=== PATIENT | male | born 1985 | race African-American/Black ===

== ENCOUNTER 2023-09-02 03:52 | Emergency (ER) | payer OTHER ==
[2023-09-02 04:14] VITALS: RESP 18
[2023-09-02 04:31] LABS: Basophils % (A) 0 %; Eosinophils # (A) 0.3 k/uL (0-0.7); Eosinophils % (A) 5 %; HCT 38.5 % (39.0-53.0); HGB 13.2 gm/dL (13.0-17.5); Lymphocytes # (A) 2.5 k/uL (1.0-4.8); Lymphocytes % (A) 45 %; MCH 32.5 pg (25.0-35.0); MCHC 34.4 g/dL (31.0-37.0); MCV 94.5 fL (80.0-100.0); Mean Platelet Volume 8.1; Monocytes # (A) 0.3 k/uL (0-1.0); Monocytes % (A) 6 %; Neutrophils # (A) 2.3 k/uL (1.3-7.7); Neutrophils % (A) 41 %; Platelet Count 239 k/uL (150-450); RBC 4.08 m/uL (4.30-5.90); RDW 12.7 % (11.5-15.5); WBC 5.5 k/uL (3.8-10.6)
[2023-09-02 04:38] LABS: ALT 22 U/L (4-49); AST 33 U/L (17-59); African American GFR (CKD) >90 (>60 ml/min/1.73 sqM); Albumin 4.1 g/dL (3.5-5.0); Alkaline Phosphatase 70 U/L (38-126); Amylase 93 U/L (30-110); Anion Gap 12 mmol/L; Blood Urea Nitrogen 8 mg/dL (9-20); Calcium 8.8 mg/dL (8.4-10.2); Carbon Dioxide 24 mmol/L (22-30); Chloride 100 mmol/L (98-107); Glucose 110 mg/dL (74-99); Lipase 236 U/L (23-300); Non-African American GFR(CKD) >90 (>60 ml/min/1.73 sqM); Potassium 3.5 mmol/L (3.5-5.1); Sodium 136 mmol/L (137-145); Total Bilirubin 0.3 mg/dL (0.2-1.3); Total Protein 6.7 g/dL (6.3-8.2)
--- NOTE | 2023-09-02 05:37 | ED ---
Abdominal Pain HPI - General Chief Complaint: Abdominal Pain Stated Complaint: abd pain Time Seen by Provider: 09/02/23 04:14 Source: patient Mode of arrival: ambulatory Limitations: no limitations - History of Present Illness Initial Comments: 37-year-old male with a history of alcoholic pancreatitis reports he had not drank in quite some period time but is been drinking liquor heavily for about 2 days and had some burning epigastric abdominal pain nausea and a small episode of nonbloody nonbilious emesis. Patient was concerned he could be developing pancreatitis considered in the ER for evaluation. Patient took a cab to the ER due to intoxication - Related Data Allergies Allergy/AdvReac Type Severity Reaction Status Date / Time No Known Allergies Allergy Verified 09/02/23 04:04 Review of Systems ROS Statement: Those systems with pertinent positive or pertinent negative responses have been documented in the HPI. ROS Other: All systems not noted in ROS Statement are negative. Past Medical History Additional Past Medical History / Comment(s): pancrentitis History of Any Multi-Drug Resistant Organisms: None Reported Past Surgical History: No Surgical Hx Reported Past Psychological History: Anxiety, Depression Smoking Status: Current every day smoker, Heavy tobacco smoker Past Drug Use History: None Reported General Exam Limitations: no limitations General appearance: alert, other (Strong odor of alcohol) Eye exam: Present: normal appearance Respiratory exam: Absent: respiratory distress Cardiovascular Exam: Present: regular rate GI/Abdominal exam: Present: soft, tenderness, normal bowel sounds. Absent: guarding, rebound, rigid Rectal exam: Present: deferred Neurological exam: Present: alert Psychiatric exam: Present: normal affect, normal mood Skin exam: Present: warm, dry Course Vital Signs 09/02/23 09/02/23 04:01 06:23 Temperature 98.6 F 98.7 F Pulse Rate 100 72 Respiratory 18 18 Rate Blood Pressure 128/82 126/86 O2 Sat by Pulse 96 96 Oximetry Medical Decision Making - Medical Decision Making Patient evaluated in triage bay as there are no beds available in the ER Was pt. sent in by a medical professional or institution (, PA, PHYSICIAN PRACTICE CONSULTANT, urgent care, hospital, or [place] health care facility...) When possible be specific @ -No Did you speak to anyone other than the patient for history (EMS, parent, family, police, friend...)? What history was obtained from this source @ -No Did you review nursing and triage notes (agree or disagree)? Why? @ -I reviewed and agree with nursing and triage notes Were old charts reviewed (outside hosp., previous admission, EMS record, old EKG, old radiological studies, urgent care reports/EKG's, [place] health care facility records)? Report findings @ -No old charts were reviewed Differential Diagnosis (chest pain, altered mental status, abdominal pain women, abdominal pain men, vaginal bleeding, weakness, fever, dyspnea, syncope, headache, dizziness, GI bleed, back pain, seizure, CVA, palpatations, mental health)? @ -Differential Abdominal Pain Men: Appendicitis, cholecystitis, diverticulosis, ischemic bowel, pancreatitis, hepatitis, UTI, gastroenteritis, AAA, incarcerated hernia, bowel obstruction, constipation, inflammatory bowel, hepatitis, peptic ulcer disease, splenic infarction, perforated viscus, testicular torsion, this is not meant to be an all-inclusive list EKG interpreted by me (3pts min.). @ -As above X-rays interpreted by me (1pt min.). @ -None done CT interpreted by me (1pt min.). @ -None done U/S interpreted by me (1pt. min.). @ -None done What testing was considered but not performed or refused? (CT, X-rays, U/S, labs)? Why? @ -None What meds were considered but not given or refused? Why? @ -None Did you discuss the management of the patient with other professionals (professionals i.e. , PA, PHYSICIAN PRACTICE CONSULTANT, lab, RT, psych nurse, social services analyst, building construction contractor, teacher, chief diversity officer, case filler)? Give summary @ -No Was smoking cessation discussed for >3mins.? @ -No Was critical care preformed (if so, how long)? @ -No Were there social determinants of health that impacted care today? How? (Homelessness, low income, unemployed, alcoholism, drug addiction, t ransportation, low edu. Level, literacy, decrease access to med. care, residential, rehab)? @ -No Was there de-escalation of care discussed even if they declined (Discuss DNR or withdrawal of care, Hospice)? DNR status @ -No What co-morbidities impacted this encounter? (DM, HTN, Smoking, COPD, CAD, Cancer, CVA, ARF, Chemo, Hep., AIDS, mental health diagnosis, sleep apnea, morbid obesity)? @ -None Was patient admitted / discharged? Hospital course, mention meds given and route, prescriptions, significant lab abnormalities, going to OR and other pertinent info. @ -Discharge Patient workup initiated in triage, patient returned to the waiting room where he slept until he was called back in for exam, which revealed a benign abdomen, patient was advised of normal labs, advised to quit drinking alcohol. Return parameters discussed, patient discharged home in stable condition. Undiagnosed new problem with uncertain prognosis? @ -No Drug Therapy requiring intensive monitoring for toxicity (Heparin, Nitro, Ins ulin, Cardizem)? @ -No Were any procedures done? @ -No Diagnosis/symptom? @ Alcohol intoxication Acute, or Chronic, or Acute on Chronic? @ -Acute Uncomplicated (without systemic symptoms) or Complicated (systemic symptoms)? @ -Complicated Side effects of treatment? @ -No Exacerbation, Progression, or Severe Exacerbation? @ -No Poses a threat to life or bodily function? How? (Chest pain, USA, VT, pneumonia, PE, COPD, DKA, ARF, appy, cholecystitis, CVA, Diverticulitis, Homicidal, Suicidal, threat to staff... and all critical care pts) @ -No - Lab Data Result diagrams: 09/02/23 04:06 09/02/23 04:06 Lab Results 09/02/23 09/02/23 09/02/23 Range/Units 04:06 04:06 04:06 WBC 5.5 (3.8-10.6) k/uL RBC 4.08 L (4.30-5.90) m/uL Hgb 13.2 (13.0-17.5) gm/dL Hct 38.5 L (39.0-53.0) % MCV 94.5 (80.0-100.0) fL MCH 32.5 (25.0-35.0) pg MCHC 34.4 (31.0-37.0) g/dL RDW 12.7 (11.5-15.5) % Plt Count 239 (150-450) k/uL MPV 8.1 Neutrophils % 41 % Lymphocytes % 45 % Monocytes % 6 % Eosinophils % 5 % Basophils % 0 % Neutrophils # 2.3 (1.3-7.7) k/uL Lymphocytes # 2.5 (1.0-4.8) k/uL Monocytes # 0.3 (0-1.0) k/uL Eosinophils # 0.3 (0-0.7) k/uL Basophils # 0.0 (0-0.2) k/uL Sodium 136 L (137-145) mmol/L Potassium 3.5 (3.5-5.1) mmol/L Chloride 100 (98-107) mmol/L Carbon Dioxide 24 (22-30) mmol/L Anion Gap 12 mmol/L BUN 8 L (9-20) mg/dL Creatinine 0.69 (0.66-1.25) mg/dL Est GFR (CKD-EPI)AfAm >90 (>60 ml/min/1.73 sqM) Est GFR (CKD-EPI)NonAf >90 (>60 ml/min/1.73 sqM) Glucose 110 H (74-99) mg/dL Plasma Lactic Acid Dio 1.6 (0.7-2.0) mmol/L Calcium 8.8 (8.4-10.2) mg/dL Total Bilirubin 0.3 (0.2-1.3) mg/dL AST 33 (17-59) U/L ALT 22 (4-49) U/L Alkaline Phosphatase 70 (38-126) U/L Total Protein 6.7 (6.3-8.2) g/dL Albumin 4.1 (3.5-5.0) g/dL Amylase 93 (30-110) U/L Lipase 236 (23-300) U/L Disposition Clinical Impression: Abdominal pain, Alcohol intoxication Disposition: HOME SELF-CARE Condition: Stable Instructions (If sedation given, give patient instructions): Abdominal Pain (ED) Additional Instructions: As discussed, I recommend you stop drinking alcohol to avoid future episodes of pain and pancreatitis Today, stay hydrated and rest Return to the ER for any worsening symptoms or development of new or concerning symptoms Is patient prescribed a controlled substance at d/c from ED?: No Referrals: None,Stated [Primary Care Provider] - 1-2 days
[2023-09-02 06:59] VITALS: BP 126/86; PULSE 72; TEMP 98.7
== END 2023-09-02 06:29 | disposition home or self-care (01) ==
LOC: EC 03:52
DX: R10.9 Unspecified abdominal pain (principal); F10.129 Alcohol abuse with intoxication, unspecified; F17.200 Nicotine dependence, unspecified, uncomplicated; Z86.59 Personal history of other mental and behavioral disorders
CPT/HCPCS: 36415; 80053; 82150; 83605; 83690; 85025; 99284

== ENCOUNTER 2023-09-08 22:48 | Inpatient (IN) | payer MEDICAID, OTHER ==
--- NOTE | 2023-09-09 01:54 | ED ---
Psych HPI - General Chief Complaint: Psychiatric Symptoms Stated Complaint: Mental Health Time Seen by Provider: 09/09/23 01:45 Source: patient, police, RN notes reviewed, old records reviewed Mode of arrival: ambulatory - History of Present Illness Initial Comments: This a 37-year-old male to the emergency department for evaluation. Patient does admit to drinking some alcohol today. Patient for psychiatric evaluation patient's checking in for increased anxiety and depression, need for mental health support Off his psychiatric medications MD Complaint: suicidal ideation, feels depressed -: days(s) Associated Psychiatric Symptoms: depression, suicidal ideation History of same: Yes Quality: constant, intermittent Improves With: none Context: not taking psychiatric medications, significant life stressor Associated Symptoms: denies other symptoms Treatments Prior to Arrival: placed on mental health hold If Self Harm: admits thoughts of self harm - Related Data Home Medications Medication Instructions Recorded Confirmed No Known Home Medications 09/09/23 09/09/23 Allergies Allergy/AdvReac Type Severity Reaction Status Date / Time No Known Allergies Allergy Verified 09/09/23 10:58 Review of Systems ROS Statement: Those systems with pertinent positive or pertinent negative responses have been documented in the HPI. ROS Other: All systems not noted in ROS Statement are negative. Past Medical History Additional Past Medical History / Comment(s): pancrentitis History of Any Multi-Drug Resistant Organisms: None Reported Past Surgical History: No Surgical Hx Reported Past Psychological History: Anxiety, Depression Smoking Status: Current every day smoker, Heavy tobacco smoker Past Drug Use History: None Reported General Exam Limitations: no limitations General appearance: alert, in no apparent distress Head exam: Present: atraumatic, normocephalic, normal inspection Eye exam: Present: normal appearance, PERRL, EOMI. Absent: scleral icterus, conjunctival injection, periorbital swelling ENT exam: Present: normal exam, mucous membranes moist Neck exam: Present: normal inspection. Absent: tenderness, meningismus, lymphadenopathy Respiratory exam: Present: normal lung sounds bilaterally. Absent: respiratory distress, wheezes, rales, rhonchi, stridor Cardiovascular Exam: Present: regular rate, normal rhythm, normal heart sounds. Absent: systolic murmur, diastolic murmur, rubs, gallop, clicks GI/Abdominal exam: Present: soft, normal bowel sounds. Absent: distended, tenderness, guarding, rebound, rigid Extremities exam: Present: normal inspection, full ROM, normal capillary refill. Absent: tenderness, pedal edema, joint swelling, calf tenderness Back exam: Present: normal inspection Neurological exam: Present: alert, oriented X3, CN II-XII intact Psychiatric exam: Present: normal affect, normal mood Skin exam: Present: warm, dry, intact, normal color. Absent: rash Course Vital Signs 09/08/23 09/09/23 09/10/23 23:00 08:43 06:02 Temperature 98.6 F 98.3 F Pulse Rate 62 89 78 Pulse Rate [ Right Brachial] Respiratory 18 18 16 Rate Blood Pressure 149/97 142/68 149/97 Blood Pressure [Right Arm] O2 Sat by Pulse 98 99 96 Oximetry 09/10/23 09/10/23 12:02 13:15 Temperature 97.2 F L Pulse Rate 78 Pulse Rate [ 84 Right Brachial] Respiratory 18 16 Rate Blood Pressure 123/84 Blood Pressure 134/93 [Right Arm] O2 Sat by Pulse 96 100 Oximetry - Reevaluation(s) Reevaluation #1: 09/09/23 06:09 Medical records reviewed Reevaluation #2: 09/09/23 06:09 Medical clear for psychiatric evaluation Medical Decision Making - Medical Decision Making 37 male will be admitted for psychiatric evaluation and treatment - Lab Data Result diagrams: 09/09/23 17:57 09/09/23 17:57 Lab Results 09/09/23 09/09/23 09/09/23 Range/Units 03:38 17:57 17:57 WBC 4.5 (3.8-10.6) k/uL RBC 4.11 L (4.30-5.90) m/uL Hgb 13.6 (13.0-17.5) gm/dL Hct 39.0 (39.0-53.0) % MCV 94.9 (80.0-100.0) fL MCH 33.0 (25.0-35.0) pg MCHC 34.8 (31.0-37.0) g/dL RDW 13.1 (11.5-15.5) % Plt Count 228 (150-450) k/uL MPV 8.6 Neutrophils % 57 % Lymphocytes % 32 % Monocytes % 7 % Eosinophils % 2 % Basophils % 0 % Neutrophils # 2.6 (1.3-7.7) k/uL Lymphocytes # 1.5 (1.0-4.8) k/uL Monocytes # 0.3 (0-1.0) k/uL Eosinophils # 0.1 (0-0.7) k/uL Basophils # 0.0 (0-0.2) k/uL Sodium 136 L (137-145) mmol/L Potassium 3.8 (3.5-5.1) mmol/L Chloride 102 (98-107) mmol/L Carbon Dioxide 27 (22-30) mmol/L Anion Gap 7 mmol/L BUN 9 (9-20) mg/dL Creatinine 0.64 L (0.66-1.25) mg/dL Est GFR (CKD-EPI)AfAm >90 (>60 ml/min/1.73 sqM) Est GFR (CKD-EPI)NonAf >90 (>60 ml/min/1.73 sqM) Glucose 91 (74-99) mg/dL Calcium 8.8 (8.4-10.2) mg/dL Total Bilirubin 0.8 (0.2-1.3) mg/dL AST 32 (17-59) U/L ALT 33 (4-49) U/L Alkaline Phosphatase 60 (38-126) U/L Total Protein 6.1 L (6.3-8.2) g/dL Albumin 3.7 (3.5-5.0) g/dL Urine Opiates Screen Not Detected (NotDetected) Ur Oxycodone Screen Not Detected (NotDetected) Urine Methadone Screen Not Detected (NotDetected) Ur Propoxyphene Screen Not Detected (NotDetected) Ur Barbiturates Screen Not Detected (NotDetected) U Tricyclic Antidepress Not Detected (NotDetected) Ur Phencyclidine Scrn Not Detected (NotDetected) Ur Amphetamines Screen Not Detected (NotDetected) U Methamphetamines Scrn Not Detected (NotDetected) U Benzodiazepines Scrn Not Detected (NotDetected) Urine Cocaine Screen Not Detected (NotDetected) U Marijuana (THC) Screen Not Detected (NotDetected) Serum Alcohol <10 mg/dL SARS-CoV-2 (PCR) (Not Detectd) 09/09/23 Range/Units 18:00 WBC (3.8-10.6) k/uL RBC (4.30-5.90) m/uL Hgb (13.0-17.5) gm/dL Hct (39.0-53.0) % MCV (80.0-100.0) fL MCH (25.0-35.0) pg MCHC (31.0-37.0) g/dL RDW (11.5-15.5) % Plt Count (150-450) k/uL MPV Neutrophils % % Lymphocytes % % Monocytes % % Eosinophils % % Basophils % % Neutrophils # (1.3-7.7) k/uL Lymphocytes # (1.0-4.8) k/uL Monocytes # (0-1.0) k/uL Eosinophils # (0-0.7) k/uL Basophils # (0-0.2) k/uL Sodium (137-145) mmol/L Potassium (3.5-5.1) mmol/L Chloride (98-107) mmol/L Carbon Dioxide (22-30) mmol/L Anion Gap mmol/L BUN (9-20) mg/dL Creatinine (0.66-1.25) mg/dL Est GFR (CKD-EPI)AfAm (>60 ml/min/1.73 sqM) Est GFR (CKD-EPI)NonAf (>60 ml/min/1.73 sqM) Glucose (74-99) mg/dL Calcium (8.4-10.2) mg/dL Total Bilirubin (0.2-1.3) mg/dL AST (17-59) U/L ALT (4-49) U/L Alkaline Phosphatase (38-126) U/L Total Protein (6.3-8.2) g/dL Albumin (3.5-5.0) g/dL Urine Opiates Screen (NotDetected) Ur Oxycodone Screen (NotDetected) Urine Methadone Screen (NotDetected) Ur Propoxyphene Screen (NotDetected) Ur Barbiturates Screen (NotDetected) U Tricyclic Antidepress (NotDetected) Ur Phencyclidine Scrn (NotDetected) Ur Amphetamines Screen (NotDetected) U Methamphetamines Scrn (NotDetected) U Benzodiazepines Scrn (NotDetected) Urine Cocaine Screen (NotDetected) U Marijuana (THC) Screen (NotDetected) Serum Alcohol mg/dL SARS-CoV-2 (PCR) Not Detected (Not Detectd) Disposition Clinical Impression: Acute anxiety, Alcohol intoxication, Depression, Suicidal ideation Disposition: TRANSFER TO PSYCH HOSP/UNIT Condition: Fair Is patient prescribed a controlled substance at d/c from ED?: No
[2023-09-09 05:04] LABS: Amphetamine Screen,Urine Not Detected (NotDetected); Barbiturate Screen,Urine Not Detected (NotDetected); Benzodiazepines Screen,Urine Not Detected (NotDetected); Cocaine Screen,Urine Not Detected (NotDetected); Methadone Screen, Urine Not Detected (NotDetected); Opiate Screen,Urine Not Detected (NotDetected); Oxycodone Screen, Urine Not Detected (NotDetected); Phencyclidine Screen,Urine Not Detected (NotDetected); Tricyclic Antidepressant,Urine Not Detected (NotDetected); Urn Cannabinoid Scrn Not Detected (NotDetected)
[2023-09-09 18:17] LABS: Basophils % (A) 0 %; Eosinophils # (A) 0.1 k/uL (0-0.7); Eosinophils % (A) 2 %; HGB 13.6 gm/dL (13.0-17.5); Lymphocytes # (A) 1.5 k/uL (1.0-4.8); Lymphocytes % (A) 32 %; MCHC 34.8 g/dL (31.0-37.0); MCV 94.9 fL (80.0-100.0); Mean Platelet Volume 8.6; Monocytes # (A) 0.3 k/uL (0-1.0); Monocytes % (A) 7 %; Neutrophils # (A) 2.6 k/uL (1.3-7.7); Neutrophils % (A) 57 %; Platelet Count 228 k/uL (150-450); RBC 4.11 m/uL (4.30-5.90); RDW 13.1 % (11.5-15.5); WBC 4.5 k/uL (3.8-10.6)
[2023-09-09 18:39] LABS: ALT 33 U/L (4-49); AST 32 U/L (17-59); African American GFR (CKD) >90 (>60 ml/min/1.73 sqM); Albumin 3.7 g/dL (3.5-5.0); Alcohol <10 mg/dL; Alkaline Phosphatase 60 U/L (38-126); Blood Urea Nitrogen 9 mg/dL (9-20); Calcium 8.8 mg/dL (8.4-10.2); Carbon Dioxide 27 mmol/L (22-30); Glucose 91 mg/dL (74-99); Non-African American GFR(CKD) >90 (>60 ml/min/1.73 sqM); Potassium 3.8 mmol/L (3.5-5.1); Sodium 136 mmol/L (137-145); Total Bilirubin 0.8 mg/dL (0.2-1.3); Total Protein 6.1 g/dL (6.3-8.2)
[2023-09-09 20:02] LABS: Anion Gap 7 mmol/L; Chloride 102 mmol/L (98-107)
[2023-09-09] MEDS ORDERED: LORazepam 1 MG TAB PO STA (21:25)
[2023-09-10] MEDS ORDERED: ALPRAZolam 1 MG TAB PO STA (12:46)
[2023-09-10] MEDS ORDERED: haloperidoL 5 MG TAB PO PRN (13:21)
[2023-09-10] MEDS ORDERED: OLANZapine 10 MG VIAL IM PRN (13:21)
[2023-09-10] MEDS ORDERED: MAGNESIUM HYDROXIDE 2,400 MG/30 ML CUP PO PRN (13:21)
[2023-09-10] MEDS ORDERED: MAG HYDROX/AL HYDROX/SIMETH 30 ML CUP PO PRN (13:21)
[2023-09-10] MEDS ORDERED: LORazepam 2 MG/ML INJ IM PRN (13:21)
[2023-09-10] MEDS ORDERED: ACETAMINOPHEN TAB 325 MG TAB PO PRN (13:21)
[2023-09-10] MEDS: NICOTINE 21MG/24HR PATCH TRANSDERM SCH (14:54)
[2023-09-10] MEDS: LORazepam 1 MG TAB PO PRN ×2 (14:54→21:05)
--- NOTE | 2023-09-10 21:54 | P.CONS ---
History of Present Illness - Reason for Consult Consult date: 09/10/23 - History of Present Illness The patient is a 37-year-old male with a PMH of mild intermittent asthma who had presented to the emergency room with complaints of depression and suicidal ideation. The patient was admitted to the mental health unit where he was seen and evaluated. He reports having splurged recently and no longer having a good financial footing. He also reports a significant intermittent alcohol abuse ( drinking as much as a fifth on certain days) and smoking a pack of cigarettes daily for the past several years. Denied any illicit substance use. Denied any physical complaints at the time of interview. Denied experiencing chest discomfort, shortness of breath, fever, chills, cough, nausea, vomiting, abdominal pain, diarrhea. Review of systems: Pertinent positives and negatives as discussed in HPI, a complete review of systems was performed and all other systems are negative. Physical examination: General: non toxic, no distress, appears at stated age, obese Derm: no unusual rashes/lesions, no unusual ecchymoses, warm, dry Head: atraumatic, normocephalic, symmetric Eyes: EOMI, no lid lag, anicteric sclera ENT: Nose and ears atraumatic, no thrush, no pharyngeal erythema Neck: trachea midline, supple Mouth: no lip lesion, mucus membranes moist Cardiovascular: S1S2 reg, no murmur, no edema Lungs: CTA bilateral, no rhonchi, no rales , no accessory muscle use Abdominal: soft, nontender to palpation, no guarding Ext: no gross muscle atrophy, no contractures, Neuro: No gross focal neuro deficits noted Psych: Alert, oriented, appropriate affect Assessment: Alcohol and tobacco abuse Depression and suicidal ideation Imaging: None performed Data Review: Reviewed with urine toxicology unremarkable coronavirus PCR negative, sodium 136, hemoglobin 13.6. Plan: Strongly advised on importance of cessation Monitor for signs of withdrawal Defer management of depression and suicidal ideation to the primary psychiatry service Thank you for allowing us to participate in the care of this patient. We will follow peripherally. Do not hesitate to contact us with questions. Someone can be reached from the [facility] hospitalist group at all hours of the day at [phone]. Past Medical History Past Medical History: Asthma Additional Past Medical History / Comment(s): pancrentitis History of Any Multi-Drug Resistant Organisms: None Reported Past Surgical History: No Surgical Hx Reported Past Psychological History: Anxiety, Depression Smoking Status: Current every day smoker Past Drug Use History: None Reported Medications and Allergies Home Medications Medication Instructions Recorded Confirmed Type No Known Home Medications 09/09/23 09/09/23 History Allergies Allergy/AdvReac Type Severity Reaction Status Date / Time No Known Allergies Allergy Verified 09/09/23 10:58 Physical Exam Vitals: Vital Signs Temp Pulse Pulse Resp BP BP Pulse Ox 09/10/23 15:03 97.2 F L 84 16 134/93 100 09/10/23 13:15 97.2 F L 84 16 134/93 100 09/10/23 12:02 78 18 123/84 96 09/10/23 06:02 98.3 F 78 16 149/97 96 Intake and Output 09/10/23 09/10/23 09/10/23 06:59 14:59 22:59 Other: Weight 119.465 kg Results CBC & Chem 7: 09/09/23 17:57 09/09/23 17:57
[2023-09-11] MEDS: NICOTINE 21MG/24HR PATCH TRANSDERM SCH (08:15)
[2023-09-11] MEDS: METOPROLOL SUCCINATE (ER) 50 MG TAB.ER.24H PO SCH (08:16)
[2023-09-11] MEDS: LORazepam 1 MG TAB PO PRN ×3 (09:57→21:14)
--- NOTE | 2023-09-11 12:13 | P.HP ---
Psychiatric H&P - . H&P Date: 09/11/23 History & Physical: Allergies Allergy/AdvReac Type Severity Reaction Status Date / Time No Known Allergies Allergy Verified 09/09/23 10:58 Vital Signs Temp 97.2 F L 09/10/23 15:03 Pulse 109 H 09/11/23 08:17 Resp 16 09/11/23 08:17 BP 133/97 09/11/23 08:17 Pulse Ox 100 09/10/23 15:03 FiO2 Intake & Output 09/10/23 09/11/23 09/11/23 18:59 06:59 18:59 Weight 119.465 kg Laboratory Last Values WBC 4.5 k/uL (3.8-10.6) 09/09/23 17:57 RBC 4.11 m/uL (4.30-5.90) L 09/09/23 17:57 Hgb 13.6 gm/dL (13.0-17.5) 09/09/23 17:57 Hct 39.0 % (39.0-53.0) 09/09/23 17:57 MCV 94.9 fL (80.0-100.0) 09/09/23 17:57 MCH 33.0 pg (25.0-35.0) 09/09/23 17:57 MCHC 34.8 g/dL (31.0-37.0) 09/09/23 17:57 RDW 13.1 % (11.5-15.5) 09/09/23 17:57 Plt Count 228 k/uL (150-450) 09/09/23 17:57 MPV 8.6 09/09/23 17:57 Neutrophils % 57 % 09/09/23 17:57 Lymphocytes % 32 % 09/09/23 17:57 Monocytes % 7 % 09/09/23 17:57 Eosinophils % 2 % 09/09/23 17:57 Basophils % 0 % 09/09/23 17:57 Neutrophils # 2.6 k/uL (1.3-7.7) 09/09/23 17:57 Lymphocytes # 1.5 k/uL (1.0-4.8) 09/09/23 17:57 Monocytes # 0.3 k/uL (0-1.0) 09/09/23 17:57 Eosinophils # 0.1 k/uL (0-0.7) 09/09/23 17:57 Basophils # 0.0 k/uL (0-0.2) 09/09/23 17:57 Sodium 136 mmol/L (137-145) L 09/09/23 17:57 Potassium 3.8 mmol/L (3.5-5.1) 09/09/23 17:57 Chloride 102 mmol/L (98-107) 09/09/23 17:57 Carbon Dioxide 27 mmol/L (22-30) 09/09/23 17:57 Anion Gap 7 mmol/L 09/09/23 17:57 BUN 9 mg/dL (9-20) 09/09/23 17:57 Creatinine 0.64 mg/dL (0.66-1.25) L 09/09/23 17:57 Est GFR (CKD-EPI)AfAm >90 (>60 ml/min/1.73 sqM) 09/09/23 17:57 Est GFR (CKD-EPI)NonAf >90 (>60 ml/min/1.73 sqM) 09/09/23 17:57 Glucose 91 mg/dL (74-99) 09/09/23 17:57 Calcium 8.8 mg/dL (8.4-10.2) 09/09/23 17:57 Total Bilirubin 0.8 mg/dL (0.2-1.3) 09/09/23 17:57 AST 32 U/L (17-59) 09/09/23 17:57 ALT 33 U/L (4-49) 09/09/23 17:57 Alkaline Phosphatase 60 U/L (38-126) 09/09/23 17:57 Total Protein 6.1 g/dL (6.3-8.2) L 09/09/23 17:57 Albumin 3.7 g/dL (3.5-5.0) 09/09/23 17:57 TSH 1.630 mIU/L (0.465-4.680) 09/09/23 17:57 Urine Opiates Screen Not Detected (NotDetected) 09/09/23 03:38 Ur Oxycodone Screen Not Detected (NotDetected) 09/09/23 03:38 Urine Methadone Screen Not Detected (NotDetected) 09/09/23 03:38 Ur Propoxyphene Screen Not Detected (NotDetected) 09/09/23 03:38 Ur Barbiturates Screen Not Detected (NotDetected) 09/09/23 03:38 U Tricyclic Antidepress Not Detected (NotDetected) 09/09/23 03:38 Ur Phencyclidine Scrn Not Detected (NotDetected) 09/09/23 03:38 Ur Amphetamines Screen Not Detected (NotDetected) 09/09/23 03:38 U Methamphetamines Scrn Not Detected (NotDetected) 09/09/23 03:38 U Benzodiazepines Scrn Not Detected (NotDetected) 09/09/23 03:38 Urine Cocaine Screen Not Detected (NotDetected) 09/09/23 03:38 U Marijuana (THC) Screen Not Detected (NotDetected) 09/09/23 03:38 Serum Alcohol <10 mg/dL 09/09/23 17:57 SARS-CoV-2 (PCR) Not Detected (Not Detectd) 09/09/23 18:00 09/11/23 08:56 IDENTIFYING DATA: Patient is an 37 y/o male, lives in a house by himself. Patient is single with no children. Patient works at a factory. HPI: Patient presented to the hospital on 09/10. As per EPS note "My mental health has been shot. Suicidal." pt reports that he has been struggling with depression for some time, but that it has been worsening significantly over the past week or so. pt states that he has a lot of stressors in his life and that the thoughts have become much more intrusive and have been staying longer. pt continues to report SI with plan to cut himself." Patient states he came to the hospital Friday night, said he spent too much money, and had a 'mental breakdown'. His anxiety hit hard, and he felt depressed, and was feeling really down on himself, endorsing severe depression. Denies any recent stressors. Said everything was "on track". Recently spent a sum on money on a vacation, and he feels that's what started this feeling. Patient states he's generally a good saver, and just 'don't know what happened". States he's more depressed than anything, he is open to starting new medications as he has been non compliant with his home meds. States his sleep is good, and his appetite is decent. Denies anxiety at this time.Patient appears to be a little hesitant and guarded during todays interview. Patient denies any suicidal or homicidal ideations intent or plan. At this time patient denies any auditory or visual hallucinations. Patient denies any flight of ideas racing thoughts and increased in goal directed behavior. Patient admits to smoking cigarettes. Denies other drugs. Drinks alcohol occasionally. PAST PSYCHIATRIC HISTORY: Patient states that he was at [facility] for about a month, and completed the program. Patient works with [employer] for peer support. Patient states he was on lexapro and risperdal, patient has been off these medications. Patient was at [facility] about 6 months ago. Patient denies any psychiatric outpatient follow-up. Patient denies any history of suicide attempts in the past. PMH: as per ED note ALLERGIES: as per EMR CHEMICAL DEPENDENCY HISTORY: as per HPI FAMILY PSYCHIATRIC/SUBSTANCE USE HISTORY: dementia SOCIAL HISTORY: Patient was born in [place], [place], moved to [place] at the age of 2. 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 Lives alone in a house, no children, works at a factory. MENTAL STATUS EXAM: General Appearance: Patient appears to be stated age is alert, directable, and attempts to cooperate. Patient appears to have good hygiene and grooming. Tall, athletic stature, bald, shaven head. dressed in street clothes. Behavior: Patient is seated without any agitated behavior. Poor eye contact. Melancholy Speech: Patient's speech is fluent and nonpressured. Guarded Hesitant Mood/Affect: Patient reports their mood is depressed, affect is congruent and constricted. Suicidality/Homicidality: Patient denies having any homicidal ideation intent or plan. Denies any suicidal ideations intent or plan Perceptions: Patient denies any visual hallucinations and denies any auditory hilario llucinations Though content/process: There is no evidence of any delusional thought content and thought process is linear and goal-directed. concrete. Memory and concentration: AOX3, grossly intact for the purposes of this session. Can spell "WORLD" backwards Judgment and insight: poor STRENGTHS/WEAKNESSES: strength is that patient is resilient. Weakness is that patient has poor judgment and is impulsive INTELLECT: average IMPRESSIONS: Major depressive disorder without psychotic features Alcohol use disorder Nicotine dependence PLAN: -Patient is admitted under voluntary status to MHU for stabilization of psychiatric symptoms and safety. Patient has signed adult voluntary form and medication consent and is placed in patient's chart. -Medications : Will start patient on Zoloft 50mg qhs for mood/anxiety, trazadone 50mg qhs, prn for sleep/mood. patient is declining anti craving meds for etoh -Ativan and Haldol PRN for agitation/aggression -Started thiamine, MVM for etoh use -CIWA protocol with Ativan PRN for ETOH withdrawal q6 hours -Patient was counselled on substance abuse and desired to cut back on use -Patient was informed of the risks, benefits and side effects of the medication and patient verbally consented to taking the medications. Patient signed med consent form and was placed in chart. -Internal Medicine consult to perform medical evaluation and physical. -NRT - nicotine patch -SW on board for discharge planning. Encourage patient to participate in groups to work on coping skills. he is refusing rehab at this time.
[2023-09-11 16:42] LABS: Chol/HDL Ratio 1.77 Ratio; LDL Cholesterol,Calculated 26.6 mg/dL (0.0-131.0)
[2023-09-11] MEDS ORDERED: SERTRALINE 50 MG TAB PO SCH (21:00)
[2023-09-11] MEDS ORDERED: traZODone HCL 50 MG TAB PO SCH (21:00)
[2023-09-12 06:50] VITALS: RESP 14; TEMP 97.4
[2023-09-12] MEDS: METOPROLOL SUCCINATE (ER) 50 MG TAB.ER.24H PO SCH (08:28)
[2023-09-12] MEDS: NICOTINE 21MG/24HR PATCH TRANSDERM SCH (08:28)
[2023-09-12] MEDS: LORazepam 1 MG TAB PO PRN (08:30)
[2023-09-12 08:56] VITALS: BP 123/87; PULSE 89
[2023-09-12] MEDS ORDERED: SERTRALINE 50 MG TAB PO SCH (09:45)
--- NOTE | 2023-09-12 10:28 | P.DS ---
Providers Date of admission: 09/10/23 13:18 Expected date of discharge: 09/12/23 Attending physician: Cheng De La Rosa MD Consults: 09/10/23 13:21 Consult Physician Routine Consulting Provider: Rich Rivera Consult Reason/Comments: H and P Do you want consulting provider notified?: Yes Primary care physician: Stated None - Discharge Diagnosis(es) (1) Depressive disorder Current Visit: Yes Status: Acute Priority: High (2) Alcohol use disorder Current Visit: Yes Status: Acute Priority: Medium (3) Nicotine dependence Current Visit: Yes Status: Acute Priority: Low Hospital Course: Admission HPI: Admission note was completed by documentation writer "Patient presented to the hospital on 09/10. As per EPS note "My mental health has been shot. Suicidal." pt reports that he has been struggling with depression for some time, but that it has been worsening significantly over the past week or so. pt states that he has a lot of stressors in his life and that the thoughts have become much more intrusive and have been staying longer. pt continues to report SI with plan to cut himself." Patient states he came to the hospital Friday night, said he spent too much money, and had a 'mental breakdown'. His anxiety hit hard, and he felt depressed, and was feeling really down on himself, endorsing severe depression. Denies any recent stressors. Said everything was "on track". Recently spent a sum on money on a vacation, and he feels that's what started this feeling. Patient states he's generally a good saver, and just 'don't know what happened". States he's more depressed than anything, he is open to starting new medications as he has been non compliant with his home meds. States his sleep is good, and his appetite is decent. Denies anxiety at this time.Patient appears to be a little hesitant and guarded during todays interview. Patient denies any suicidal or homicidal ideations intent or plan. At this time patient denies any auditory or visual hallucinations. Patient denies any flight of ideas racing thoughts and increased in goal directed behavior. Patient admits to smoking cigarettes. Denies other drugs. Drinks alcohol occasionally. ]" Hospital course: Upon admission to the unit patient was directable and agreeable to commence treatment and signed adult voluntary form . Patient got along well with other patients on the unit and followed unit protocol. Patient was compliant with the medications and denied any side effects throughout hospital course. Patient was started on Zoloft 50 mg daily for mood/anxiety, trazodone 25 mg daily at bedtime for insomnia/mood. Patient was offered anti-craving medications for alcohol however declined it. Patient spoke of his stressors and engaged in therapy both group and individual. Patient was also seen by medical team for history and physical exam. Throughout the course of the hospitalization patient gradually improved with regards to mood, anxiety, sleep and became more future oriented with improved insight and judgment. On the day of discharge patient denied any suicidal or homicidal ideations intent or plan denied any auditory or visual hallucinations. Patient endorsed wanting to live for his sobriety and his future. He also mentioned that he has a current job lined up will be starting o jose the weekend. The patient denied any access to guns or weapons. Patient denied any paranoia and did not endorse any delusions. Patient does have a significant history of substance abuse and was counseled on abstaining from all substances including alcohol and marijuana. Patient was offered however declined inpatient substance-abuse rehab. Patient elected to do outpatient substance use treatment program through [facility]. Patient was also counseled on the medications and need for regular compliance and was encouraged to follow-up with their outpatient appointment for mental health and also for primary care. Mental status exam: General Appearance: Patient appears to be well built, bald, stated age is alert, pleasant, and cooperative. Patient is in no acute distress and has improved hygiene and grooming Behavior: Patient is calmly seated without any agitated behavior. Speech: Patient's speech is fluent and nonpressured. Mood/Affect: Patient reports their mood is "better", affect is congruent and euthymic. Suicidality/Homicidality: Patient denies having any suicidal or homicidal ideation intent or plan. Perceptions: Patient denies any auditory or visual hallucinations. Though content/process: There is no evidence of any delusional thought content and thought process is linear and goal-directed. more future oriented Memory and concentration: AOX3, grossly intact for the purposes of this session. Can spell "WORLD" backwards correctly. Judgment and insight: improved with guarded prognosis Impression: Depressive disorder unspecified, likely adjustment disorder with depressed mood Alcohol use disorder Nicotine dependence Plan: -Continue with discharge today as patient has improved and stabilized psychiatrically and is not currently an imminent threat to himself and/or others. -Continue medications: Zoloft 50 mg daily for mood/anxiety, trazodone 25 mg daily at bedtime for insomnia/mood. -Patient was counseled on the need for medication compliance and appropriate follow-up at mental health and also primary care for medical issues. Patient verbalized understanding and agreed. -Social work to help Shelley patient's discharge today back home. Social work also to arrange for patients follow up appointments for psychiatric care along with follow up with primary care provider. -Patient counseled on abstaining from recreational drugs and marijuana and alcohol. Was informed/educated on the adverse effects on their physical and mental health. Patient verbally agreed and understood. Patient was offered substance abuse treatment however declined at this time. -Patient was instructed to return to the hospital or seek immediate medical care if their psychiatric or medical symptoms do worsen or reoccur. Allergies Allergy/AdvReac Type Severity Reaction Status Date / Time No Known Allergies Allergy Verified 09/09/23 10:58 Laboratory Results WBC 4.5 k/uL (3.8-10.6) 09/09/23 17:57 RBC 4.11 m/uL (4.30-5.90) L 09/09/23 17:57 Hgb 13.6 gm/dL (13.0-17.5) 09/09/23 17:57 Hct 39.0 % (39.0-53.0) 09/09/23 17:57 MCV 94.9 fL (80.0-100.0) 09/09/23 17:57 MCH 33.0 pg (25.0-35.0) 09/09/23 17:57 MCHC 34.8 g/dL (31.0-37.0) 09/09/23 17:57 RDW 13.1 % (11.5-15.5) 09/09/23 17:57 Plt Count 228 k/uL (150-450) 09/09/23 17:57 MPV 8.6 09/09/23 17:57 Neutrophils % 57 % 09/09/23 17:57 Lymphocytes % 32 % 09/09/23 17:57 Monocytes % 7 % 09/09/23 17:57 Eosinophils % 2 % 09/09/23 17:57 Basophils % 0 % 09/09/23 17:57 Neutrophils # 2.6 k/uL (1.3-7.7) 09/09/23 17:57 Lymphocytes # 1.5 k/uL (1.0-4.8) 09/09/23 17:57 Monocytes # 0.3 k/uL (0-1.0) 09/09/23 17:57 Eosinophils # 0.1 k/uL (0-0.7) 09/09/23 17:57 Basophils # 0.0 k/uL (0-0.2) 09/09/23 17:57 Sodium 136 mmol/L (137-145) L 09/09/23 17:57 Potassium 3.8 mmol/L (3.5-5.1) 09/09/23 17:57 Chloride 102 mmol/L (98-107) 09/09/23 17:57 Carbon Dioxide 27 mmol/L (22-30) 09/09/23 17:57 Anion Gap 7 mmol/L 09/09/23 17:57 BUN 9 mg/dL (9-20) 09/09/23 17:57 Creatinine 0.64 mg/dL (0.66-1.25) L 09/09/23 17:57 Est GFR (CKD-EPI)AfAm >90 (>60 ml/min/1.73 sqM) 09/09/23 17:57 Est GFR (CKD-EPI)NonAf >90 (>60 ml/min/1.73 sqM) 09/09/23 17:57 Glucose 91 mg/dL (74-99) 09/09/23 17:[address] Glu mg/dL 111 mg/dL 09/09/23 17:57 Hemoglobin A1c 5.5 % (<=6.0) 09/09/23 17:57 Calcium 8.8 mg/dL (8.4-10.2) 09/09/23 17:57 Total Bilirubin 0.8 mg/dL (0.2-1.3) 09/09/23 17:57 AST 32 U/L (17-59) 09/09/23 17:57 ALT 33 U/L (4-49) 09/09/23 17:57 Alkaline Phosphatase 60 U/L (38-126) 09/09/23 17:57 Total Protein 6.1 g/dL (6.3-8.2) L 09/09/23 17:57 Albumin 3.7 g/dL (3.5-5.0) 09/09/23 17:57 Triglycerides 115.00 mg/dL (0.00-149.00) 09/09/23 17:57 Cholesterol 114.00 mg/dL (0.00-200.00) 09/09/23 17:57 LDL Cholesterol, Calc 26.6 mg/dL (0.0-131.0) 09/09/23 17:57 VLDL Cholesterol, Calc 23.00 mg/dL (5.00-40.00) 09/09/23 17:57 HDL Cholesterol 64.40 mg/dL (40.00-60.00) H 09/09/23 17:57 Cholesterol/HDL Ratio 1.77 Ratio 09/09/23 17:57 TSH 1.630 mIU/L (0.465-4.680) 09/09/23 17:57 Urine Opiates Screen Not Detected (NotDetected) 09/09/23 03:38 Ur Oxycodone Screen Not Detected (NotDetected) 09/09/23 03:38 Urine Methadone Screen Not Detected (NotDetected) 09/09/23 03:38 Ur Propoxyphene Screen Not Detected (NotDetected) 09/09/23 03:38 Ur Barbiturates Screen Not Detected (NotDetected) 09/09/23 03:38 U Tricyclic Antidepress Not Detected (NotDetected) 09/09/23 03:38 Ur Phencyclidine Scrn Not Detected (NotDetected) 09/09/23 03:38 Ur Amphetamines Screen Not Detected (NotDetected) 09/09/23 03:38 U Methamphetamines Scrn Not Detected (NotDetected) 09/09/23 03:38 U Benzodiazepines Scrn Not Detected (NotDetected) 09/09/23 03:38 Urine Cocaine Screen Not Detected (NotDetected) 09/09/23 03:38 U Marijuana (THC) Screen Not Detected (NotDetected) 09/09/23 03:38 Serum Alcohol <10 mg/dL 09/09/23 17:57 SARS-CoV-2 (PCR) Not Detected (Not Detectd) 09/09/23 18:00 Vital Signs Temp 97.4 F L 09/12/23 06:43 Pulse 89 09/12/23 08:33 Resp 14 09/12/23 06:43 BP 123/87 09/12/23 08:33 Pulse Ox 100 09/10/23 15:03 FiO2 Patient Condition at Discharge: Stable Plan - Discharge Summary Discharge Rx Participant: No New Discharge Prescriptions: New traZODone HCL [Desyrel] 25 mg PO HS 30 Days #15 tab Metoprolol Succinate (ER) [Toprol XL] 50 mg PO DAILY 30 Days #30 tab Nicotine 21Mg/24Hr Patch [Habitrol] 1 patch TRANSDERM DAILY 14 Days #14 patch Sertraline [Zoloft] 50 mg PO HS 30 Days #30 tab Discharge Medication List Metoprolol Succinate (ER) [Toprol XL] 50 mg PO DAILY 30 Days #30 tab 09/12/23 [Rx] Nicotine 21Mg/24Hr Patch [Habitrol] 1 patch TRANSDERM DAILY 14 Days #14 patch 09/12/23 [Rx] Sertraline [Zoloft] 50 mg PO HS 30 Days #30 tab 09/12/23 [Rx] traZODone HCL [Desyrel] 25 mg PO HS 30 Days #15 tab 09/12/23 [Rx] Follow up Appointment(s)/Referral(s): None,Stated [Primary Care Provider] - 1-2 days Discharge Disposition: HOME SELF-CARE
== END 2023-09-12 12:17 | disposition home or self-care (01) | DRG 754 ==
LOC: EC 22:48 → 3MHU 09-10 13:18
PROVIDERS: ADMIT Psychiatry & Neurology Psychiatry; ATTEND Psychiatry & Neurology Psychiatry
DX: F43.21 Adjustment disorder with depressed mood (principal); G47.00 Insomnia, unspecified; J45.20 Mild intermittent asthma, uncomplicated; F17.210 Nicotine dependence, cigarettes, uncomplicated; Z20.822 Contact with and (suspected) exposure to COVID-19; F03.90 Unspecified dementia, unspecified severity, without behavioral disturbance, psychotic disturbance, mood disturbance, and anxiety; F10.129 Alcohol abuse with intoxication, unspecified; R45.851 Suicidal ideations; Z79.899 Other long term (current) drug therapy; Z91.148 Patient's other noncompliance with medication regimen for other reason; Z71.41 Alcohol abuse counseling and surveillance of alcoholic; Z71.6 Tobacco abuse counseling
CPT/HCPCS: 36415; 80053; 80061; 80306; 80320; 82075; 83036; 84443; 85025; 87635; 99285

== ENCOUNTER 2023-10-02 23:58 | Emergency (ER) | payer OTHER ==
--- NOTE | 2023-10-03 01:46 | ED ---
Alcohol HPI - General Source: patient Mode of arrival: ambulatory Limitations: no limitations <Gautam Barker - Last Filed: 10/03/23 03:46> - General Source: RN notes reviewed <Ramandeep Kaur - Last Filed: 10/07/23 18:04> - General Chief Complaint: Alcohol Stated Complaint: Etoh Time Seen by Provider: 10/03/23 01:46 - History of Present Illness Initial Comments: 38-year-old male presenting with chief complaint of alcohol intoxication (Gautam Barker) Quick note reviewed. This is a 38-year-old -[place] male with a past medical history significant for EtOH abuse presents emergency Department with chief complaint of alcohol intoxication. Patient reports that his last alcoholic beverage was approximately January for arrival to the emergency department. He reports that it was beer. He reports that he will have intermittent binges with alcohol. He has withdrawn in the past and denies any alcohol withdrawal seizures. He denies any specific complaints at this time. Denies any dizziness or lightheadedness, headache, chest pain or shortness of breath, abdominal pain or nausea or vomiting. Denies any suicidal or homicidal ideation at this time. (Ramandeep Kaur) - Related Data Previous Rx's Medication Instructions Recorded Metoprolol Succinate (ER) [Toprol 50 mg PO DAILY 30 Days #30 tab 09/12/23 XL] Nicotine 21Mg/24Hr Patch [Habitrol] 1 patch TRANSDERM DAILY 14 Days 09/12/23 #14 patch Sertraline [Zoloft] 50 mg PO HS 30 Days #30 tab 09/12/23 traZODone HCL [Desyrel] 25 mg PO HS 30 Days #15 tab 09/12/23 Allergies Allergy/AdvReac Type Severity Reaction Status Date / Time No Known Allergies Allergy Verified 10/03/23 00:02 Review of Systems ROS Other: All systems not noted in ROS Statement are negative. <Gautam Barker - Last Filed: 10/03/23 03:46> ROS Other: All systems not noted in ROS Statement are negative. <Ramandeep Kaur - Last Filed: 10/07/23 18:04> ROS Statement: Those systems with pertinent positive or pertinent negative responses have been documented in the HPI. Past Medical History Past Medical History: Asthma Additional Past Medical History / Comment(s): pancrentitis History of Any Multi-Drug Resistant Organisms: None Reported Past Surgical History: No Surgical Hx Reported Past Psychological History: Anxiety, Depression Smoking Status: Current every day smoker, Heavy tobacco smoker Past Alcohol Use History: Abuse, Daily, Heavy Past Drug Use History: None Reported <Gautam Barker - Last Filed: 10/03/23 03:46> General Exam Limitations: no limitations <Gautam Barker - Last Filed: 10/03/23 03:46> <Ramandeep Kaur - Last Filed: 10/07/23 18:04> - General Exam Comments Initial Comments: Visual Physical Exam Vital signs reviewed General: Well-appearing, nontoxic, no acute distress. Head: Normocephalic, atraumatic Eyes: PERRLA, EOMI ENT: Airway patent Chest: Nonlabored breathing Skin: No visual rash, normal skin tone Neuro: Alert and oriented 3 Musculoskeletal: No gross abnormalities (Gautam Barker) General: Alert, in no acute distress, appears clinically sober Head: atraumatic normocephalic. Eyes PERRL, EOMI intact, mucous membranes moist Respiratory: Lungs clear to auscultation bilaterally Cardiovascular: Heart rate regular rhythm Abdominal: Soft without guarding or rebound Extremities: Normal inspection with full range of motion and normal capillary refill Neuroogic: alert and oriented 3, CN II-XII intact, able to ambulate with steady gait Skin: warm dry and intact with normal color (Ramandeep Kaur) Course <Ramandeep Kaur - Last Filed: 10/07/23 18:04> Vital Signs 10/02/23 10/03/23 10/03/23 23:59 06:58 08:19 Temperature 98.3 F 98.0 F Pulse Rate 123 H 74 80 Respiratory 20 18 20 Rate Blood Pressure 169/101 131/88 160/99 O2 Sat by Pulse 95 97 98 Oximetry - Reevaluation(s) Reevaluation #1: 10/03/23 06:05 quick note reviewed. Initial history and physical exam were performed after patient's ER placement to room 17 (Ramandeep Kaur) Reevaluation #2: 10/03/23 06:43 interpreted the following: EKG performed at 06: For one rate 81 bpm normal sinus rhythm IN interval 168, QRS duration 80, QT/QTc 399/436 (Ramandeep Kaur) Medical Decision Making - Lab Data Result diagrams: 10/03/23 06:18 10/03/23 06:18 <Ramandeep Kaur - Last Filed: 10/07/23 18:04> - Medical Decision Making Was pt. sent in by a medical professional or institution (CELESTE Palencia, TURNING SANDER TENDER, urgent care, hospital, or [place] health care facility...) When possible be specific @ -[No] Did you speak to anyone other than the patient for history (EMS, parent, family, police, friend...)? What history was obtained from this source @ -[No] Did you review nursing and triage notes (agree or disagree)? Why? @ -[I reviewed and agree with nursing and triage notes] Were old charts reviewed (outside hosp., previous admission, EMS record, old EKG, old radiological studies, urgent care reports/EKG's, [place] health care facility records)? Report findings @ -[No old charts were reviewed] Differential Diagnosis (chest pain, altered mental status, abdominal pain women, abdominal pain men, vaginal bleeding, weakness, fever, dyspnea, syncope, headache, dizziness, GI bleed, back pain, seizure, CVA, palpatations, mental health, musculoskeletal)? @ -[not applicable] EKG interpreted by me (3pts min.). @ -[As above] X-rays interpreted by me (1pt min.). @ -[None done] CT interpreted by me (1pt min.). @ -[None done] U/S interpreted by me (1pt. min.). @ -[None done] What testing was considered but not performed or refused? (CT, X-rays, U/S, labs)? Why? @ -[None] What meds were considered but not given or refused? Why? @ -[None] Did you discuss the management of the patient with other professionals (professionals i.e. CELESTE Palencia, TURNING SANDER TENDER, lab, RT, psych nurse, social service technician, office clerk routine, teacher, chief data officer, pillowcase cutter)? Give summary @ -[No] Was smoking cessation discussed for >3mins.? @ -[No] Was critical care preformed (if so, how long)? @ -[No] Were there social determinants of health that impacted care today? How? (Homelessness, low income, unemployed, alcoholism, drug addiction, transportation, low edu. Level, literacy, decrease access to med. care, custodial, rehab)? @ -[No] Was there de-escalation of care discussed even if they declined (Discuss DNR or withdrawal of care, Hospice)? DNR status @ -[No] What co-morbidities impacted this encounter? (DM, HTN, Smoking, COPD, CAD, Cancer, CVA, ARF, Chemo, Hep., AIDS, mental health diagnosis, sleep apnea, morbid obesity)? @ -[None] Was patient admitted / discharged? Hospital course, mention meds given and route, prescriptions, significant lab abnormalities, going to OR and other pertinent info. @ -Discharged. This is a pleasant 38-year-old -[place] male who presents the emergency department with alcohol intoxication. Patient had quick note and quick physical exam performed on the ED emergency department due to high volumes on Highway times. Patient had a thorough history and physical exam performed after ER placement into bed 17. Patient appears clinically sober. Vital signs are stable. Patient's EtOH is negative. All other laboratory and urinalysis studies were unremarkable. Patient was provided 2 L IV fluids discharged in stable condition. He was provided alternative resources for EtOH abuse. Return precautions discussed at length. Discharged in stable condition. Case is discussed with Dr. Howell, ED attending who agrees with plan of care Undiagnosed new problem with uncertain prognosis? @ -[No] Drug Therapy requiring intensive monitoring for toxicity (Heparin, Nitro, Insulin, Cardizem)? @ -[No] Were any procedures done? @ -[No] Diagnosis/symptom? @ -Alcohol intoxication Acute, or Chronic, or Acute on Chronic? @ -Acute Uncomplicated (without systemic symptoms) or Complicated (systemic symptoms)? @ -Uncomplicated Side effects of treatment? @ -[No] Exacerbation, Progression, or Severe Exacerbation? @ -[No] Poses a threat to life or bodily function? How? (Chest pain, USA, CT, pneumonia, PE, COPD, DKA, ARF, appy, cholecystitis, CVA, Diverticulitis, Homicidal, Suicidal, threat to staff... and all critical care pts) @ -Low likelihood (Ramandeep Kaur) - Lab Data Lab Results 10/03/23 10/03/23 10/03/23 Range/Units 06:18 06:18 06:18 WBC 5.3 (3.8-10.6) k/uL RBC 4.16 L (4.30-5.90) m/uL Hgb 13.8 (13.0-17.5) gm/dL Hct 41.1 (39.0-53.0) % MCV 99.0 (80.0-100.0) fL MCH 33.2 (25.0-35.0) pg MCHC 33.5 (31.0-37.0) g/dL RDW 14.5 (11.5-15.5) % Plt Count 251 (150-450) k/uL MPV 7.9 Neutrophils % 47 % Lymphocytes % 43 % Monocytes % 5 % Eosinophils % 3 % Basophils % 1 % Neutrophils # 2.5 (1.3-7.7) k/uL Lymphocytes # 2.2 (1.0-4.8) k/uL Monocytes # 0.3 (0-1.0) k/uL Eosinophils # 0.2 (0-0.7) k/uL Basophils # 0.0 (0-0.2) k/uL Macrocytosis Slight Sodium 142 (137-145) mmol/L Potassium 4.3 (3.5-5.1) mmol/L Chloride 105 (98-107) mmol/L Carbon Dioxide 24 (22-30) mmol/L Anion Gap 13 mmol/L BUN 23 H (9-20) mg/dL Creatinine 0.75 (0.66-1.25) mg/dL Est GFR (CKD-EPI)AfAm >90 (>60 ml/min/1.73 sqM) Est GFR (CKD-EPI)NonAf >90 (>60 ml/min/1.73 sqM) Glucose 107 H (74-99) mg/dL Calcium 9.2 (8.4-10.2) mg/dL Total Bilirubin 0.2 (0.2-1.3) mg/dL AST 35 (17-59) U/L ALT 38 (4-49) U/L Alkaline Phosphatase 61 (38-126) U/L Total Protein 6.7 (6.3-8.2) g/dL Albumin 4.2 (3.5-5.0) g/dL Urine Color Colorless Urine Appearance Clear (Clear) Urine pH 5.5 (5.0-8.0) Ur Specific [place] 1.022 (1.001-1.035) Urine Protein Negative (Negative) Urine Glucose (UA) Negative (Negative) Urine Ketones Negative (Negative) Urine Blood Trace H (Negative) Urine Nitrite Negative (Negative) Urine Bilirubin Negative (Negative) Urine Urobilinogen <2.0 (<2.0) mg/dL Ur Leukocyte Esterase Negative (Negative) Urine RBC 2 (0-5) /hpf Urine WBC 1 (0-5) /hpf Ur Squamous Epith Cells <1 (0-4) /hpf Uric Acid Crystals Rare H (None) /hpf Urine Bacteria Rare H (None) /hpf Urine Mucus Rare H (None) /hpf Serum Alcohol 49 mg/dL Disposition <Gatuam Barker - Last Filed: 10/03/23 03:46> Is patient prescribed a controlled substance at d/c from ED?: No Time of Disposition: 07:51 <Ramandeep Kaur - Last Filed: 10/07/23 18:04> Clinical Impression: Alcohol use disorder Disposition: HOME SELF-CARE Condition: Stable Instructions (If sedation given, give patient instructions): Alcohol Intoxication (ED), Alcohol Withdrawal (ED) Additional Instructions: Please visit [place] for Alcohol Abuse assistance Return to the nearest emergency department if severe nausea or vomiting, tremors develop Referrals: None,Stated [Primary Care Provider] - 1-2 days Forms: AA Meetings [facility] - [facility], AA Meetings [facility] [facility], Inp Substance Abuse Facilities
[2023-10-03] MEDS ORDERED: SODIUM CHLORIDE 0.9% 1,000 ML IV ONE (06:15)
[2023-10-03 06:35] LABS: Basophils % (A) 1 %; Eosinophils # (A) 0.2 k/uL (0-0.7); Eosinophils % (A) 3 %; HCT 41.1 % (39.0-53.0); HGB 13.8 gm/dL (13.0-17.5); Lymphocytes # (A) 2.2 k/uL (1.0-4.8); Lymphocytes % (A) 43 %; MCH 33.2 pg (25.0-35.0); MCHC 33.5 g/dL (31.0-37.0); Macrocytosis Slight; Mean Platelet Volume 7.9; Monocytes # (A) 0.3 k/uL (0-1.0); Monocytes % (A) 5 %; Neutrophils # (A) 2.5 k/uL (1.3-7.7); Neutrophils % (A) 47 %; Platelet Count 251 k/uL (150-450); RBC 4.16 m/uL (4.30-5.90); RDW 14.5 % (11.5-15.5); WBC 5.3 k/uL (3.8-10.6)
[2023-10-03 06:45] LABS: AST 35 U/L (17-59); African American GFR (CKD) >90 (>60 ml/min/1.73 sqM); Albumin 4.2 g/dL (3.5-5.0); Blood Urea Nitrogen 23 mg/dL (9-20); Calcium 9.2 mg/dL (8.4-10.2); Carbon Dioxide 24 mmol/L (22-30); Chloride 105 mmol/L (98-107); Glucose 107 mg/dL (74-99); Non-African American GFR(CKD) >90 (>60 ml/min/1.73 sqM); Total Bilirubin 0.2 mg/dL (0.2-1.3); Total Protein 6.7 g/dL (6.3-8.2)
[2023-10-03 07:05] LABS: ALT 38 U/L (4-49); Alcohol 49 mg/dL; Alkaline Phosphatase 61 U/L (38-126); Anion Gap 13 mmol/L; Appearance,Urine Clear (Clear); Bacteria,Urine Rare /hpf; Bilirubin,Urine Negative (Negative); Blood,Urine Trace (Negative); Color,Urine Colorless; Glucose,Urine (UA) Negative (Negative); Ketones,Urine Negative (Negative); Leukocyte Esterase,Urine Negative (Negative); Mucus,Urine Rare /hpf; Nitrite,Urine Negative (Negative); PH, Urine 5.5 (5.0-8.0); Potassium 4.3 mmol/L (3.5-5.1); Protein,Urine Negative (Negative); RBC,Urine 2 /hpf (0-5); Sodium 142 mmol/L (137-145); Specific Gravity,Urine 1.022 (1.001-1.035); Squamous Epithelial Cell,Urine <1 /hpf (0-4); Uric Acid Crystals,Urine Rare /hpf; Urobilinogen,Urine <2.0 mg/dL (<2.0); WBC,Urine 1 /hpf (0-5)
[2023-10-03 08:41] VITALS: BP 160/99; PULSE 80; RESP 20; TEMP 98
== END 2023-10-03 08:19 | disposition home or self-care (01) ==
LOC: EC 23:58
DX: F10.129 Alcohol abuse with intoxication, unspecified (principal); J45.909 Unspecified asthma, uncomplicated; F17.200 Nicotine dependence, unspecified, uncomplicated; Z86.59 Personal history of other mental and behavioral disorders; I25.2 Old myocardial infarction; Y90.2 Blood alcohol level of 40-59 mg/100 ml
CPT/HCPCS: 36415; 93005; 80053; 85025; 81001; 99284; 96360; G0480; 80320

== ENCOUNTER 2023-12-11 23:46 | Inpatient (IN) | payer MEDICAID, OTHER ==
[2023-12-12] MEDS: TOPICAL SKIN ADHESIVE 1 EACH AMP TOPICAL ONE (01:50)
[2023-12-12 01:51] LABS: Amphetamine Screen,Urine Not Detected (NotDetected); Barbiturate Screen,Urine Not Detected (NotDetected); Benzodiazepines Screen,Urine Not Detected (NotDetected); Cocaine Screen,Urine Not Detected (NotDetected); Methadone Screen, Urine Not Detected (NotDetected); Opiate Screen,Urine Not Detected (NotDetected); Oxycodone Screen, Urine Not Detected (NotDetected); Phencyclidine Screen,Urine Not Detected (NotDetected); Tricyclic Antidepressant,Urine Not Detected (NotDetected); Urn Cannabinoid Scrn Not Detected (NotDetected)
[2023-12-12 01:55] LABS: Basophils # (A) 0.1 k/uL (0-0.2); Basophils % (A) 1 %; Eosinophils # (A) 0.1 k/uL (0-0.7); Eosinophils % (A) 1 %; HCT 42.9 % (39.0-53.0); HGB 14.7 gm/dL (13.0-17.5); Lymphocytes # (A) 2.3 k/uL (1.0-4.8); Lymphocytes % (A) 39 %; MCHC 34.3 g/dL (31.0-37.0); MCV 99.2 fL (80.0-100.0); Macrocytosis Slight; Mean Platelet Volume 9.6; Monocytes # (A) 0.2 k/uL (0-1.0); Monocytes % (A) 4 %; Neutrophils # (A) 3.1 k/uL (1.3-7.7); Neutrophils % (A) 53 %; Platelet Count 101 k/uL (150-450); RBC 4.33 m/uL (4.30-5.90); RDW 15.2 % (11.5-15.5); WBC 5.9 k/uL (3.8-10.6)
--- NOTE | 2023-12-12 01:55 | ED ---
Psych HPI - General Source: patient Mode of arrival: ambulatory <Rosa Huerta - Last Filed: 12/12/23 06:11> <Chetan Hayden - Last Filed: 12/12/23 09:56> - General Chief Complaint: Psychiatric Symptoms Stated Complaint: PETITION - History of Present Illness Initial Comments: Geo is a 38-year-old gentleman who presents the ER today requesting a psychiatric evaluation. Patient states that life stresses have just gotten to him, today he felt overwhelmed by stresses and used a picker box operator to cut his left wrist. Patient states he does feel he needs to talk to somebody about what is going on for him mentally but right now he is tired and does not feel like christy nessa. (Rosa Huerta) - Related Data Home Medications Medication Instructions Recorded Confirmed No Known Home Medications 12/12/23 12/12/23 Allergies Allergy/AdvReac Type Severity Reaction Status Date / Time No Known Allergies Allergy Verified 12/12/23 08:50 Review of Systems ROS Other: All systems not noted in ROS Statement are negative. <Rosa Huerta - Last Filed: 12/12/23 06:11> ROS Other: All systems not noted in ROS Statement are negative. <Chetan Hayden - Last Filed: 12/12/23 09:56> ROS Statement: Those systems with pertinent positive or pertinent negative responses have been documented in the HPI. Past Medical History Past Medical History: Asthma, Hypertension Additional Past Medical History / Comment(s): pancrentitis History of Any Multi-Drug Resistant Organisms: None Reported Past Surgical History: No Surgical Hx Reported Past Psychological History: Anxiety, Depression Smoking Status: Current every day smoker, Heavy tobacco smoker Past Alcohol Use History: Abuse, Daily, Heavy Past Drug Use History: None Reported <Rosa Huerta - Last Filed: 12/12/23 06:11> General Exam Limitations: no limitations General appearance: alert, appears intoxicated Head exam: Present: atraumatic Eye exam: Present: PERRL ENT exam: Present: normal exam Respiratory exam: Absent: respiratory distress Cardiovascular Exam: Present: regular rate GI/Abdominal exam: Present: soft. Absent: distended Rectal exam: Present: deferred Neurological exam: Present: alert, oriented X3 Psychiatric exam: Present: depressed, agitated Skin exam: Present: other (Laceration over the left anterior wrist approximately 4 cm in length, visible subcutaneous fat but no deep injury, no arterial or venous injury) <Rosa Huerta - Last Filed: 12/12/23 06:11> Course Vital Signs 12/11/23 23:48 Temperature 97.8 F Pulse Rate 112 H Respiratory 20 Rate Blood Pressure 146/103 O2 Sat by Pulse 95 Oximetry Procedures - Laceration Laceration #1 Consent Obtained: verbal consent Indication: laceration Site: upper extremity Size (cm): 4 Description: linear Depth: simple, single layer Pre-repair: wound explored Type of Sutures: other (glue) Patient Tolerated Procedure: well, no complications <Rosa Huerta - Last Filed: 12/12/23 06:11> Medical Decision Making - Lab Data Result diagrams: 12/12/23 01:49 12/12/23 01:49 <Rosa Huerta - Last Filed: 12/12/23 06:11> - Lab Data Result diagrams: 12/12/23 01:49 12/12/23 01:49 <Chetan Hayden - Last Filed: 12/12/23 09:56> - Medical Decision Making Was pt. sent in by a medical professional or institution (, PA, CRIME SCENE INVESTIGATOR, urgent care, hospital, or halfway...) When possible be specific @ -[No] Did you speak to anyone other than the patient for history (EMS, parent, family, police, friend...)? What history was obtained from this source @ -EMS Did you review nursing and triage notes (agree or disagree)? Why? @ -[I reviewed and agree with nursing and triage notes] Were old charts reviewed (outside hosp., previous admission, EMS record, old EKG, old radiological studies, urgent care reports/EKG's, halfway records)? Report findings @ -[No old charts were reviewed] Differential Diagnosis (chest pain, altered mental status, abdominal pain women, abdominal pain men, vaginal bleeding, weakness, fever, dyspnea, syncope, headache, dizziness, GI bleed, back pain, seizure, CVA, palpatations, mental health)? @ -Differential Mental Health Depression, anxiety, bipolar, psychosis, schizophrenia, borderline personality, situational depression, adjustment disorder, behavioral disorder, brain tumor, malingering, substance abuse, encephalopathy, medication reaction, dementia, hypothyroidism, degenerative neurologic disorder, lupus.... This is not meant to be all-inclusive list EKG interpreted by me (3pts min.). @ -[As above] X-rays interpreted by me (1pt min.). @ -[None done] CT interpreted by me (1pt min.). @ -[None done] U/S interpreted by me (1pt. min.). @ -[None done] What testing was considered but not performed or refused? (CT, X-rays, U/S, labs)? Why? @ -[None] What meds were considered but not given or refused? Why? @ -[None] Did you discuss the management of the patient with other professionals (professionals i.e. , PA, CRIME SCENE INVESTIGATOR, lab, RT, psych nurse, mental health social worker, outsole caser, teacher, compliance review officer, business case analyst)? Give summary @ -[No] Was smoking cessation discussed for >3mins.? @ -[No] Was critical care preformed (if so, how long)? @ -[No] Were there social determinants of health that impacted care today? How? (Homelessness, low income, unemployed, alcoholism, drug addiction, transportation, low edu. Level, literacy, decrease access to med. care, senior living, rehab)? @ -[No] Was there de-escalation of care discussed even if they declined (Discuss DNR or withdrawal of care, Hospice)? DNR status @ -[No] What co-morbidities impacted this encounter? (DM, HTN, Smoking, COPD, CAD, Cancer, CVA, ARF, Chemo, Hep., AIDS, mental health diagnosis, sleep apnea, morbid obesity)? @ -[None] Was patient admitted / discharged? Hospital course, mention meds given and route, prescriptions, significant lab abnormalities, going to OR and other pertinent info. @ -[facility] (Rosa Huerta) Case discussed with psychiatric nurse with plans for admission. Patient will be admitted to psychiatric floor and did sign themselves in. Diagnosis: Depression, laceration Acute, acute (Chetan Hayden) - Lab Data Lab Results 12/12/23 12/12/23 12/12/23 Range/Units 00:41 01:49 01:49 WBC 5.9 (3.8-10.6) k/uL RBC 4.33 (4.30-5.90) m/uL Hgb 14.7 (13.0-17.5) gm/dL Hct 42.9 (39.0-53.0) % MCV 99.2 (80.0-100.0) fL MCH 34.0 (25.0-35.0) pg MCHC 34.3 (31.0-37.0) g/dL RDW 15.2 (11.5-15.5) % Plt Count 101 L (150-450) k/uL MPV 9.6 Neutrophils % 53 % Lymphocytes % 39 % Monocytes % 4 % Eosinophils % 1 % Basophils % 1 % Neutrophils # 3.1 (1.3-7.7) k/uL Lymphocytes # 2.3 (1.0-4.8) k/uL Monocytes # 0.2 (0-1.0) k/uL Eosinophils # 0.1 (0-0.7) k/uL Basophils # 0.1 (0-0.2) k/uL Macrocytosis Slight Sodium 136 L (137-145) mmol/L Potassium 4.1 (3.5-5.1) mmol/L Chloride 103 (98-107) mmol/L Carbon Dioxide 23 (22-30) mmol/L Anion Gap 10 mmol/L BUN 15 (9-20) mg/dL Creatinine 0.98 (0.66-1.25) mg/dL Est GFR (CKD-EPI)AfAm >90 (>60 ml/min/1.73 sqM) Est GFR (CKD-EPI)NonAf >90 (>60 ml/min/1.73 sqM) Glucose 102 H (74-99) mg/dL Calcium 8.8 (8.4-10.2) mg/dL Total Bilirubin 2.1 H (0.2-1.3) mg/dL AST 215 H (17-59) U/L ALT 243 H (4-49) U/L Alkaline Phosphatase 167 H (38-126) U/L Total Protein 6.7 (6.3-8.2) g/dL Albumin 3.9 (3.5-5.0) g/dL Salicylates <1.0 mg/dL Urine Opiates Screen Not Detected (NotDetected) Ur Oxycodone Screen Not Detected (NotDetected) Urine Methadone Screen Not Detected (NotDetected) Acetaminophen <10.0 ug/mL Ur Barbiturates Screen Not Detected (NotDetected) U Tricyclic Antidepress Not Detected (NotDetected) Ur Phencyclidine Scrn Not Detected (NotDetected) Ur Amphetamines Screen Not Detected (NotDetected) U Methamphetamines Scrn Not Detected (NotDetected) U Benzodiazepines Scrn Not Detected (NotDetected) Urine Cocaine Screen Not Detected (NotDetected) U Marijuana (THC) Screen Not Detected (NotDetected) Serum Alcohol 162 mg/dL Disposition <Rosa Huerta - Last Filed: 12/12/23 06:11> Is patient prescribed a controlled substance at d/c from ED?: No Time of Disposition: 09:55 <Chetan Hayden - Last Filed: 12/12/23 09:56> Clinical Impression: Depression, Self-harm, Laceration Disposition: TRANSFER TO PSYCH HOSP/UNIT Referrals: None,Stated [Primary Care Provider] - 1-2 days
[2023-12-12 02:05] LABS: ALT 243 U/L (4-49); AST 215 U/L (17-59); Acetaminophen <10.0 ug/mL; African American GFR (CKD) >90 (>60 ml/min/1.73 sqM); Albumin 3.9 g/dL (3.5-5.0); Alkaline Phosphatase 167 U/L (38-126); Anion Gap 10 mmol/L; Blood Urea Nitrogen 15 mg/dL (9-20); Calcium 8.8 mg/dL (8.4-10.2); Carbon Dioxide 23 mmol/L (22-30); Chloride 103 mmol/L (98-107); Glucose 102 mg/dL (74-99); Non-African American GFR(CKD) >90 (>60 ml/min/1.73 sqM); Potassium 4.1 mmol/L (3.5-5.1); Salicylate <1.0 mg/dL; Sodium 136 mmol/L (137-145); Total Bilirubin 2.1 mg/dL (0.2-1.3); Total Protein 6.7 g/dL (6.3-8.2)
[2023-12-12 02:24] LABS: Alcohol 162 mg/dL
[2023-12-12] MEDS: LORazepam 1 MG TAB PO STA (08:17)
[2023-12-12] MEDS ORDERED: MAGNESIUM HYDROXIDE 2,400 MG/30 ML CUP PO PRN (13:41)
[2023-12-12] MEDS ORDERED: MAG HYDROX/AL HYDROX/SIMETH 355 ML BOTTLE PO PRN (13:41)
[2023-12-12] MEDS: LORazepam 1 MG TAB PO PRN (14:17)
[2023-12-12] MEDS: OLANZapine 2.5 MG TAB PO SCH (20:20)
[2023-12-12] MEDS: IBUPROFEN 600 MG TAB PO PRN (20:24)
--- NOTE | 2023-12-13 05:29 | P.PN ---
Progress Note - Text Progress Note Date: 12/13/23 patient was sleeping and refused to wake up for evaluation
[2023-12-13 07:28] LABS: Basophils % (A) 1 %; Eosinophils # (A) 0.1 k/uL (0-0.7); Eosinophils % (A) 2 %; HCT 41.6 % (39.0-53.0); HGB 13.6 gm/dL (13.0-17.5); Lymphocytes # (A) 1.7 k/uL (1.0-4.8); Lymphocytes % (A) 44 %; MCH 32.6 pg (25.0-35.0); MCHC 32.7 g/dL (31.0-37.0); MCV 99.9 fL (80.0-100.0); Macrocytosis Slight; Mean Platelet Volume 9.9; Monocytes # (A) 0.2 k/uL (0-1.0); Monocytes % (A) 6 %; Neutrophils # (A) 1.7 k/uL (1.3-7.7); Neutrophils % (A) 45 %; Platelet Count 101 k/uL (150-450); RBC 4.17 m/uL (4.30-5.90); RDW 14.7 % (11.5-15.5); WBC 3.8 k/uL (3.8-10.6)
[2023-12-13 07:47] LABS: ALT 177 U/L (4-49); AST 132 U/L (17-59); African American GFR (CKD) >90 (>60 ml/min/1.73 sqM); Albumin 3.5 g/dL (3.5-5.0); Alkaline Phosphatase 121 U/L (38-126); Anion Gap 5 mmol/L; Blood Urea Nitrogen 14 mg/dL (9-20); Calcium 8.8 mg/dL (8.4-10.2); Carbon Dioxide 29 mmol/L (22-30); Chloride 103 mmol/L (98-107); Glucose 101 mg/dL (74-99); Non-African American GFR(CKD) >90 (>60 ml/min/1.73 sqM); Sodium 137 mmol/L (137-145); Total Bilirubin 2.2 mg/dL (0.2-1.3); Total Protein 6.3 g/dL (6.3-8.2)
[2023-12-13] MEDS: NALTREXONE HCL 50 MG TAB PO SCH (09:16)
[2023-12-13] MEDS: SERTRALINE 50 MG TAB PO SCH (09:16)
[2023-12-13] MEDS: MULTIVITAMINS, THERA 1 EACH TAB PO SCH (09:16)
[2023-12-13] MEDS: THIAMINE 100 MG TAB PO SCH (09:16)
[2023-12-13] MEDS: FOLIC ACID 1 MG TAB PO SCH (09:16)
[2023-12-13] MEDS: LORazepam 1 MG TAB PO PRN (09:17)
--- NOTE | 2023-12-13 10:20 | P.HP ---
Psychiatric H&P - . H&P Date: 12/13/23 History & Physical: Allergies Allergy/AdvReac Type Severity Reaction Status Date / Time No Known Allergies Allergy Verified 12/12/23 14:31 Vital Signs Temp 98.3 F 12/13/23 08:00 Pulse 90 12/13/23 08:00 Resp 18 12/13/23 08:00 BP 138/89 12/13/23 08:00 Pulse Ox 97 12/12/23 14:33 FiO2 Intake & Output 12/12/23 12/13/23 12/13/23 18:59 06:59 18:59 Weight 125.787 kg Laboratory Last Values WBC 3.8 k/uL (3.8-10.6) 12/13/23 07:04 RBC 4.17 m/uL (4.30-5.90) L 12/13/23 07:04 Hgb 13.6 gm/dL (13.0-17.5) 12/13/23 07:04 Hct 41.6 % (39.0-53.0) 12/13/23 07:04 MCV 99.9 fL (80.0-100.0) 12/13/23 07:04 MCH 32.6 pg (25.0-35.0) 12/13/23 07:04 MCHC 32.7 g/dL (31.0-37.0) 12/13/23 07:04 RDW 14.7 % (11.5-15.5) 12/13/23 07:04 Plt Count 101 k/uL (150-450) L 12/13/23 07:04 MPV 9.9 12/13/23 07:04 Neutrophils % 45 % 12/13/23 07:04 Lymphocytes % 44 % 12/13/23 07:04 Monocytes % 6 % 12/13/23 07:04 Eosinophils % 2 % 12/13/23 07:04 Basophils % 1 % 12/13/23 07:04 Neutrophils # 1.7 k/uL (1.3-7.7) 12/13/23 07:04 Lymphocytes # 1.7 k/uL (1.0-4.8) 12/13/23 07:04 Monocytes # 0.2 k/uL (0-1.0) 12/13/23 07:04 Eosinophils # 0.1 k/uL (0-0.7) 12/13/23 07:04 Basophils # 0.0 k/uL (0-0.2) 12/13/23 07:04 Macrocytosis Slight 12/13/23 07:04 Sodium 137 mmol/L (137-145) 12/13/23 07:04 Potassium 4.0 mmol/L (3.5-5.1) 12/13/23 07:04 Chloride 103 mmol/L (98-107) 12/13/23 07:04 Carbon Dioxide 29 mmol/L (22-30) 12/13/23 07:04 Anion Gap 5 mmol/L 12/13/23 07:04 BUN 14 mg/dL (9-20) 12/13/23 07:04 Creatinine 0.93 mg/dL (0.66-1.25) 12/13/23 07:04 Est GFR (CKD-EPI)AfAm >90 (>60 ml/min/1.73 sqM) 12/13/23 07:04 Est GFR (CKD-EPI)NonAf >90 (>60 ml/min/1.73 sqM) 12/13/23 07:04 Glucose 101 mg/dL (74-99) H 12/13/23 07:04 Calcium 8.8 mg/dL (8.4-10.2) 12/13/23 07:04 Total Bilirubin 2.2 mg/dL (0.2-1.3) H 12/13/23 07:04 AST 132 U/L (17-59) H 12/13/23 07:04 ALT 177 U/L (4-49) H 12/13/23 07:04 Alkaline Phosphatase 121 U/L (38-126) 12/13/23 07:04 Total Protein 6.3 g/dL (6.3-8.2) 12/13/23 07:04 Albumin 3.5 g/dL (3.5-5.0) 12/13/23 07:04 TSH 1.710 mIU/L (0.465-4.680) 12/13/23 07:04 Salicylates <1.0 mg/dL 12/12/23 01:49 Urine Opiates Screen Not Detected (NotDetected) 12/12/23 00:41 Ur Oxycodone Screen Not Detected (NotDetected) 12/12/23 00:41 Urine Methadone Screen Not Detected (NotDetected) 12/12/23 00:41 Acetaminophen <10.0 ug/mL 12/12/23 01:49 Ur Barbiturates Screen Not Detected (NotDetected) 12/12/23 00:41 U Tricyclic Antidepress Not Detected (NotDetected) 12/12/23 00:41 Ur Phencyclidine Scrn Not Detected (NotDetected) 12/12/23 00:41 Ur Amphetamines Screen Not Detected (NotDetected) 12/12/23 00:41 U Methamphetamines Scrn Not Detected (NotDetected) 12/12/23 00:41 U Benzodiazepines Scrn Not Detected (NotDetected) 12/12/23 00:41 Urine Cocaine Screen Not Detected (NotDetected) 12/12/23 00:41 U Marijuana (THC) Screen Not Detected (NotDetected) 12/12/23 00:41 Serum Alcohol 162 mg/dL 12/12/23 01:49 Influenza Type A (PCR) Not Detected (Not Detectd) 12/12/23 11:53 Influenza Type B (PCR) Not Detected (Not Detectd) 12/12/23 11:53 RSV (PCR) Not Detected (Not Detectd) 12/12/23 11:53 SARS-CoV-2 (PCR) Not Detected (Not Detectd) 12/12/23 11:53 12/13/23 10:12 This is a psychiatry assessment on David Acevedo who is a 38-year-old A frican-Monegasque male and was currently hospitalized with depression and anxiety feelings of helplessness hopelessness and suicidal ideations Patient is difficult to understand due to his style of responding where he mumbles most of the answers and was trying to also sleep and keep his eyes closed Patient reports that the he on has had problems with his family where they were spreading bad rumors about some of his behaviors or activity that he had done on the Internet and that his ex-girlfriend and or his spreading rumors He says that he cannot get into any specifics about it He also admits that he is at problems with alcohol use but denies any other drug use He admits feeling frustrated and overwhelmed and helpless and hopeless Patient otherwise is unable to give any specific details Past history personal social history patient continues to be wanting to sleep at this time and mumbles answers which are hard to understand For the disorder be collected at a later date when patient is more cooperative and able to sit up and respond appropriately Mental status examination: Mental status examination: Reveals a middle-aged male who is heavyset and looks older for his age Patient is arousable but continues to maintain that he wants to sleep with his eyes closed and response and mumbles at times was difficult to understand Affect at this time remains flat Speech was unclear coherent and relevant Patient denies any auditory or visual hallucinations There is no evidence of any overt psychosis Patient admits feeling helpless and hopeless but did not express or denies any suicidal ideations or plans Formal and operational judgment and insight are impaired Diagnostic impression: Schizoaffective disorder Rule out bipolar disorder mixed type Alcohol use disorder by history Interpersonal family issues and conflicts Plan: The patient will be asked was on the unit for further evaluation and treatment Therapy will be focused on providing supportive care improving his coping abilities with a multimodal treatment Patient also participated on the [facility] activities individual milieu group OT RT PT and pharmacotherapy Approximate the stay would be 7-10 days We'll continue on the whole medications at this time guest services agent will be on board regarding placement recommendations Patient will also be monitored with this CIWA score for any alcohol withdrawal symptoms 12/13/23 10:19
[2023-12-13] MEDS: NICOTINE 14MG/24HR PATCH TRANSDERM SCH (14:12)
--- NOTE | 2023-12-14 03:15 | P.CONS ---
History of Present Illness - Reason for Consult Consult date: 12/14/23 - History of Present Illness The patient is a 38-year-old male with a PMH of hypertension who had presented to the emergency room with complaints of depression and suicidal ideation. Patient was admitted to the mental health unit where he was seen and evaluated accompanied by mental health unit RN. Patient reports he had been feeling overwhelmed due to multiple stressors in his life and decided to "end it all" by slitting his left wrist. Laceration was sutured in the emergency room. He denied any physical complaints at the time of interview. Denied experiencing chest discomfort, shortness of breath, fever, chills, cough, nausea, vomiting, abdominal pain, diarrhea. The patient did endorse excessive alcohol use, drinking 1/5 of hard liquor daily. Also reports smoking a pack of cigarettes daily. Denied illicit substance use. Review of systems: Pertinent positives and negatives as discussed in HPI, a complete review of systems was performed and all other systems are negative. Physical examination: General: non toxic, no distress, appears at stated age, morbidly obese Derm: no unusual rashes/lesions, no unusual ecchymoses, warm, dry left wrist sutures in place Head: atraumatic, normocephalic, symmetric Eyes: EOMI, no lid lag, anicteric sclera ENT: Nose and ears atraumatic, no thrush, no pharyngeal erythema Neck: trachea midline, supple Mouth: no lip lesion, mucus membranes moist Cardiovascular: S1S2 reg, no murmur, no edema Lungs: CTA bilateral, no rhonchi, no rales , no accessory muscle use Abdominal: soft, nontender to palpation, no guarding Ext: no gross muscle atrophy, no contractures, Neuro: No gross focal neuro deficits noted Psych: Alert, oriented, appropriate affect Assessment: Chronic conditions: Hypertension, untreated Alcohol abuse Depression and suicidal ideation Imaging: None performed Data Review: Laboratory evaluation is remarkable for AST 132, ALT 177, total bilirubin 2.2, glucose 101, and TSH 1.7. Plan: Start patient on Norvasc 10 mg p.o. daily Advised on the importance of cessation from alcohol abuse Continue to monitor for signs of alcohol withdrawal Continue with thiamine and multivitamin with Ativan as needed for CIWA Defer management of depression and suicidal ideation to the primary psychiatry service Thank you for allowing us to participate in the care of this patient. We will follow peripherally. Do not hesitate to contact us with questions. Someone can be reached from the [facility] [place] hospitalist group at all hours of the day at [phone]. Past Medical History Past Medical History: Asthma, Hypertension Additional Past Medical History / Comment(s): pancrentitis History of Any Multi-Drug Resistant Organisms: None Reported Past Surgical History: No Surgical Hx Reported Past Anesthesia/Blood Transfusion Reactions: No Reported Reaction Smoking Status: Current every day smoker Medications and Allergies Home Medications Medication Instructions Recorded Confirmed Type No Known Home Medications 12/12/23 12/12/23 History Allergies Allergy/AdvReac Type Severity Reaction Status Date / Time No Known Allergies Allergy Verified 12/12/23 14:31 Physical Exam Vitals: Vital Signs Temp Pulse Resp BP 12/13/23 08:00 98.3 F 90 18 138/89 Results CBC & Chem 7: 12/13/23 07:04 12/13/23 07:04 Labs: Abnormal Lab Results - Last 24 Hours (Table) 12/13/23 12/13/23 Range/Units 07:04 07:04 RBC 4.17 L (4.30-5.90) m/uL Plt Count 101 L (150-450) k/uL Glucose 101 H (74-99) mg/dL Total Bilirubin 2.2 H (0.2-1.3) mg/dL AST 132 H (17-59) U/L ALT 177 H (4-49) U/L
--- NOTE | 2023-12-14 10:49 | P.PN ---
Subjective Progress Note Date: 12/14/23 Principal diagnosis: iagnostic impression: Schizoaffective disorder Rule out bipolar disorder mixed type Alcohol use disorder by history Interpersonal family issues and conflicts Patient Name: David Acevedo Date of : 85 Patient Status: Inpatient Attending Provider: Cheng De La Rosa Date: 12/14/23 10:12 Subjective data: The patient was seen very was laying comfortably in bed Patient did not make any eye contact Patient continues to look at the ceiling but continues to respond to the questions asked He states that he feels about the same He feels that he depressed He says that he is homeless and does not know was to where he will: [facility] seems to be agreeable to go there to address his alcohol use Patient did not otherwise verbalize admitted involuntarily and remains withdrawn Mental status examination: Mental status examination: Reveals a middle-aged male who is heavyset and looks older for his age Patient is arousable but continues to maintain that he wants to sleep with his eyes closed and response and mumbles at times was difficult to understand Affect at this time remains flat Speech was unclear coherent and relevant Patient denies any auditory or visual hallucinations There is no evidence of any overt psychosis Patient admits feeling helpless and hopeless but did not express or denies any suicidal ideations or plans Formal and operational judgment and insight are impaired Diagnostic impression: Schizoaffective disorder Rule out bipolar disorder mixed type Alcohol use disorder by history Interpersonal family issues and conflicts Plan: The patient will be asked was on the unit for further evaluation and treatment Therapy will be focused on providing supportive care improving his coping abilities with a multimodal treatment Patient also participated on the [facility] individual milieu group OT RT PT and pharmacotherapy Approximate the stay would be 7-10 days We'll continue on the whole medications at this time member services representative will be on board regarding placement recommendations Would recommend snf house/substance use program Patient will also be monitored with this CIWA score for any alcohol withdrawal symptoms Objective - Vital Signs Vital signs: Vital Signs Temp 96.9 F L 12/14/23 10:21 Pulse 76 12/14/23 10:21 Resp 18 12/14/23 10:21 BP 134/74 12/14/23 10:21 Pulse Ox 95 12/14/23 10:21 FiO2 - Labs CBC & Chem 7: 12/13/23 07:04 12/13/23 07:04
[2023-12-14] MEDS: traZODone HCL 100 MG TAB PO PRN (20:31)
[2023-12-14] MEDS: METOPROLOL SUCCINATE (ER) 50 MG TAB.ER.24H PO SCH (21:03)
--- NOTE | 2023-12-15 09:32 | P.PN ---
Subjective Progress Note Date: 12/15/23 Principal diagnosis: iagnostic impression: Schizoaffective disorder Rule out bipolar disorder mixed type Alcohol use disorder by history Interpersonal family issues and conflicts Patient Name: David Acevedo Date of : 85 Patient Status: Inpatient Attending Provider: Cheng De La Rosa Date: 12/15/23 10:12 Subjective data: The patient was seen very was laying comfortably in bed Patient remains uncooperative and had his body covered completely with the blanket and refused to put down during this interview patient responded to some questions from under the blanket He states that he still feels about the same When asked about his depression and anxiety patient mostly response with the numbers like states that his depression was 7 and his anxiety was 6 Patient is well versed in the mental health terminology discussions Motivation for further interaction remains limited Mental status examination: Mental status examination: Reveals a middle-aged male who is heavyset and looks older for his age Patient is arousable but continues to maintain that he wants to sleep with his eyes closed and response and mumbles at times was difficult to understand Affect at this time remains flat Speech was unclear coherent and relevant Patient denies any auditory or visual hallucinations There is no evidence of any overt psychosis Patient admits feeling helpless and hopeless but did not express or denies any suicidal ideations or plans Formal and operational judgment and insight are impaired Diagnostic impression: Schizoaffective disorder Rule out bipolar disorder mixed type Alcohol use disorder by history Interpersonal family issues and conflicts Plan: The patient will be asked was on the unit for further evaluation and treatment Therapy will be focused on providing supportive care improving his coping abilities with a multimodal treatment Patient also participated on the [facility] individual milieu group OT RT PT and pharmacotherapy Approximate the stay would be 7-10 days We'll continue on the whole medications at this time client services manager will be on board regarding placement recommendations Would recommend alf house/substance use program Patient will also be monitored with this CIWA score for any alcohol withdrawal symptoms Objective - Vital Signs Vital signs: Vital Signs Temp 97.5 F L 12/15/23 09:14 Pulse 99 12/15/23 09:14 Resp 16 12/15/23 09:14 BP 129/87 12/15/23 09:14 Pulse Ox 97 12/15/23 09:14 FiO2 Intake & Output 12/14/23 12/15/23 12/15/23 18:59 06:59 18:59 Weight 126.3 kg - Labs CBC & Chem 7: 12/13/23 07:04 12/13/23 07:04
--- NOTE | 2023-12-16 10:13 | P.PN ---
Subjective Progress Note Date: 12/16/23 Principal diagnosis: iagnostic impression: Schizoaffective disorder Rule out bipolar disorder mixed type Alcohol use disorder by history Interpersonal family issues and conflicts Patient Name: David Acevedo Date of : 85 Patient Status: Inpatient Attending Provider: Cheng De La Rosa Date: 12/16/23 10:12 Subjective data: The patient was seen very was laying comfortably in bed Patient remains withdrawn and mostly keeps his eyes closed and does not acknowledge this comic book writer in the room Patient however shots back with the some numbers whenever asked about his depression or anxiety Patient's interaction with the staff or in the group has been poor Speech was coherent and relevant Patient denies any auditory or visual hallucinations There is no evidence of any overt psychosis Patient admits feeling helpless and hopeless but did not express or denies any suicidal ideations or plans Formal and operational judgment and insight are impaired Diagnostic impression: Schizoaffective disorder Rule out bipolar disorder mixed type Alcohol use disorder by history Interpersonal family issues and conflicts Plan: Patient was again encouraged to participate in on the [facility] activities The patient will be asked was on the unit for further evaluation and treatment Therapy will be focused on providing supportive care improving his coping abilities with a multimodal treatment Patient also participated on the [facility] activities individual milieu group OT RT PT and pharmacotherapy Approximate the stay would be 7-10 days We'll continue on the whole medications at this time creative services specialist will be on board regarding placement recommendations Would recommend long term house/substance use program Patient is not expressing any withdrawal symptoms Continue supportive care and encourage participation in individual and group therapy Beck Peters M.D. Objective - Vital Signs Vital signs: Vital Signs Temp 98.0 F 12/15/23 20:39 Pulse 107 H 12/15/23 21:36 Resp 20 12/15/23 21:36 BP 135/90 12/15/23 21:36 Pulse Ox 99 12/15/23 21:36 FiO2 - Labs CBC & Chem 7: 12/13/23 07:04 12/13/23 07:04
--- NOTE | 2023-12-16 10:13 | P.PN ---
Subjective Progress Note Date: 12/16/23 Principal diagnosis: iagnostic impression: Schizoaffective disorder Rule out bipolar disorder mixed type Alcohol use disorder by history Interpersonal family issues and conflicts Patient Name: David Acevedo Date of : 85 Patient Status: Inpatient Attending Provider: Cheng De La Rosa Date: 12/16/23 10:12 Subjective data: The patient was seen very was laying comfortably in bed Patient remains withdrawn and mostly keeps his eyes closed and does not acknowledge this leader writer in the room Patient however shots back with the some numbers whenever asked about his depression or anxiety Patient's interaction with the staff or in the group has been poor Speech was coherent and relevant Patient denies any auditory or visual hallucinations There is no evidence of any overt psychosis Patient admits feeling helpless and hopeless but did not express or denies any suicidal ideations or plans Formal and operational judgment and insight are impaired Diagnostic impression: Schizoaffective disorder Rule out bipolar disorder mixed type Alcohol use disorder by history Interpersonal family issues and conflicts Plan: Patient was again encouraged to participate in on the [facility] activities The patient will be asked was on the unit for further evaluation and treatment Therapy will be focused on providing supportive care improving his coping abilities with a multimodal treatment Patient also participated on the [facility] activities individual milieu group OT RT PT and pharmacotherapy Approximate the stay would be 7-10 days We'll continue on the whole medications at this time nursing services manager will be on board regarding placement recommendations Would recommend intermediate house/substance use program Patient is not expressing any withdrawal symptoms Continue supportive care and encourage participation in individual and group therapy Beck Peters M.D. Objective - Vital Signs Vital signs: Vital Signs Temp 98.0 F 12/15/23 20:39 Pulse 107 H 12/15/23 21:36 Resp 20 12/15/23 21:36 BP 135/90 12/15/23 21:36 Pulse Ox 99 12/15/23 21:36 FiO2 - Labs CBC & Chem 7: 12/13/23 07:04 12/13/23 07:04
[2023-12-16] MEDS: ACETAMINOPHEN TAB 325 MG TAB PO PRN (13:51)
[2023-12-16] MEDS: GABAPENTIN 300 MG CAP PO SCH (15:10)
[2023-12-16] MEDS: LORazepam 1 MG TAB PO PRN (22:24)
[2023-12-17] MEDS: LORazepam 1 MG TAB PO PRN (10:26)
--- NOTE | 2023-12-17 11:46 | P.PN ---
Progress Note - Text Progress Note Date: 12/17/23 Interval History: Patient was seen wandering the hallways and was directable and agreeable to sp danni with technical proposal writer in the office. Patient states that he is feeling "pretty depressed". States that he has been getting good sleep on the unit, and has been going to groups. Patient has very poor eye contact, appears to be visually depressed, endorsing anxiety. Patient states that he is not really having withdraw symptoms. He states his appetite is good. At this time patient denies any suicidal or homicidal ideations, intent or plan. Patient denies any auditory, visual hallucinations and denies any paranoia or delusions. Patient denies any side effects from the medications and has been compliant with meds. Mental Status Exam: General Appearance: Patient appears to be stated age is alert, directable, and cooperative. Behavior: Patient is calmly seated without any agitated behavior. Poor eye contact. Withdrawn Speech: Patient's speech is fluent and nonpressured. [place]. Monotone. Mood/Affect: Mood is improving mildly, however, still depressed. affect is congruent and constricted. Suicidality/Homicidality: Patient denies having any suicidal or homicidal ideation intent or plan. Perceptions: Patient denies any visual hallucinations and denies any auditory hallucinations Though content/process: There is no evidence of any delusional thought content and thought process is linear and goal-directed. [place], vague. Memory and concentration: AOX3, grossly intact for the purposes of this session Judgment and insight: Poor, improving mildly Assessment: Schizoaffective disorder Rule out bipolar disorder mixed type Alcohol use disorder by history Plan: -Patient continues to meet criteria for inpatient psychiatric admission for symptom stabilization and safety. Patient has signed adult voluntary form and medication consent and was placed in patient's chart. -Medications: increase Zyprexa to 5 mg p.o. nightly naltrexone 50 mg p.o. daily increase Zoloft to 100 mg p.o. daily trazodone 100 mg p.o. nightly as needed for sleep -When necessary Ativan and Haldol for agitation/aggression. -NRT -nicotine patch -SW on board for discharge planning. Encouraged the patient to participate in milieu.
[2023-12-17] MEDS: OLANZapine 5 MG TAB PO SCH (20:15)
[2023-12-18] MEDS: SERTRALINE 100 MG TAB PO SCH (07:59)
--- NOTE | 2023-12-18 11:59 | P.PN ---
Progress Note - Text Progress Note Date: 12/18/23 Interval History: Patient was seen wandering the hallways and was directable and agreeable to scooby razo with teletypewriter installer in the office. Patient states that he is still feeling depressed, and he feels the medication is only working "in spurts". Claims that his anxiety is pretty high. States that he has been getting good sleep on the unit, about 6-7 hours. Has not attended groups today, states he slept through them. Patient has very poor eye contact, appears to be visually depressed, endorsing anxiety. Patient has been mainly isolating in his room, not interested in going to groups today or interacting with others. Soft tone of voice, poor eye contact. Patient questioning about medications, teletypewriter installer explained to the patient that it may take a couple days for the medication to start being effective. Patient states that he is not having withdraw symptoms. He states his appetite is good. At this time patient denies any suicidal or homicidal ideations, intent or plan. Patient denies any auditory, visual hallucinations and denies any paranoia or delusions. Patient denies any side effects from the medications and has been compliant with meds. Mental Status Exam: General Appearance: Patient appears to be stated age is alert, directable, and cooperative. Behavior: Patient is calmly seated without any agitated behavior. Poor eye contact. Withdrawn Speech: Patient's speech is fluent and nonpressured. [place]. Monotone. Mood/Affect: Mood is improving mildly, however, still depressed. affect is congruent and constricted. Suicidality/Homicidality: Patient denies having any suicidal or homicidal ideation intent or plan. Perceptions: Patient denies any visual hallucinations and denies any auditory hallucinations Though content/process: There is no evidence of any delusional thought content and thought process is linear and goal-directed. [place], vague. Memory and concentration: AOX3, grossly intact for the purposes of this session Judgment and insight: Poor, improving mildly Assessment: Schizoaffective disorder Rule out bipolar disorder mixed type Alcohol use disorder by history Plan: -Patient continues to meet criteria for inpatient psychiatric admission for symptom stabilization and safety. Patient has signed adult voluntary form and medication consent and was placed in patient's chart. -Medications: Zyprexa to 5 mg p.o. nightly naltrexone 50 mg p.o. daily Zoloft to 100 mg p.o. daily, will be increasing tomorrow. Will also consider adding adjunct antidepressant if needed. Trazodone 100 mg p.o. nightly as needed for sleep -When necessary Ativan and Haldol for agitation/aggression. -NRT -nicotine patch -SW on board for discharge planning. Encouraged the patient to participate in milieu. Once patient is psychiatrically stabilized, then patient will be plan for discharge likely next week
--- NOTE | 2023-12-19 12:42 | P.PN ---
Progress Note - Text Progress Note Date: 12/19/23 Interval History: Patient was seen wandering the hallways and was directable and agreeable to sp danni with designer writer in the office. Patient states that he is feeling a little more up beat today. States that he slept the entire day yesterday, Patient has improving eye contact, he is endorsing some anxiety. Patient has been up and active on the unit today, going to groups. Patient states that he is not having withdraw symptoms. He states his appetite is good. At this time patient denies any suicidal or homicidal ideations, intent or plan. Patient denies any auditory, visual hallucinations and denies any paranoia or delusions. Patient denies any side effects from the medications and has been compliant with meds. Mental Status Exam: General Appearance: Patient appears to be stated age is alert, directable, and cooperative. Behavior: Patient is calmly seated without any agitated behavior. Speech: Patient's speech is fluent and nonpressured. [place]. Monotone.mildly improving Mood/Affect: Mood is improving mildly, however, still depressed. affect is congruent and constricted. Suicidality/Homicidality: Patient denies having any suicidal or homicidal ideation intent or plan. Perceptions: Patient denies any visual hallucinations and denies any auditory hallucinations Though content/process: There is no evidence of any delusional thought content and thought process is linear and goal-directed. Memory and concentration: AOX3, grossly intact for the purposes of this session Judgment and insight: Poor, improving mildly Assessment: Schizoaffective disorder Rule out bipolar disorder mixed type Alcohol use disorder by history Plan: -Patient continues to meet criteria for inpatient psychiatric admission for symptom stabilization and safety. Patient has signed adult voluntary form and medication consent and was placed in patient's chart. -Medications: Zyprexa to 5 mg p.o. nightly naltrexone 50 mg p.o. daily Zoloft to 100 mg p.o. daily, will be increasing to 150mg Friday. Will also consider adding adjunct antidepressant if needed. Trazodone 100 mg p.o. nightly as needed for sleep -When necessary Ativan and Haldol for agitation/aggression -NRT -nicotine patch -SW on board for discharge planning. Encouraged the patient to participate in milieu. Once patient is psychiatrically stabilized, then patient will be plan for discharge likely next week
[2023-12-20] MEDS: SERTRALINE 100 MG TAB PO SCH (08:21)
--- NOTE | 2023-12-20 18:02 | P.PN ---
Progress Note - Text Progress Note Date: 12/20/23 Interval history: Patient was seen asleep in his room and was snoring loudly. On awakening, he states he has JASPREET but is noncompliant with a CPAP. We discussed the importance of following up with a sleep doctor as an outpatient due to the relationship between JASPREET and depression, and he expressed understanding. He was agreeable to speak with director underwriter sales, however appeared tired, depressed, withdrawn and isolative. At this time patient denies any suicidal or homicidal ideation, intent or plan. Denies any auditory or visual hallucinations. Patient denies any side effects from the medications and has been compliant with meds. Mental status exam: General Appearance: Patient appears to be stated age, obese. Behavior: No agitated behavior. Patient is calm and directable. He appears tired, depressed, withdrawn and isolative. Speech: Patient's speech is fluent and nonpressured. Mood/Affect: Mood is improving mildly, affect is congruent and constricted. Suicidality/Homicidality: Patient denies having any suicidal or homicidal ideation intent or plan. Perceptions: Patient denies any auditory or visual hallucinations. Though content/process: There is no evidence of any delusional thought content and thought process is linear and goal-directed. Memory and concentration: AOX3, grossly intact for the purposes of this session Judgment and insight: improving mildly Assessment/Plan: Continue with current diagnosis. Patient continues to meet criteria for inpatient psychiatric admission for symptom stabilization and safety. Patient will be maintained on current psychotropic medication regimen. Zoloft increased to 150 mg daily starting this morning by Dr. De La Rosa. Monitor for medication compliance and for any psychotropic medication side effects. Will continue to monitor ongoing response to treatment. Encouraged participation in milieu. He would benefit from outpatient follow-up with sleep medicine for JASPREET after discharge.
[2023-12-21 08:24] VITALS: TEMP 96.8
--- NOTE | 2023-12-21 18:01 | P.PN ---
Progress Note - Text Progress Note Date: 12/21/23 Interval history: Patient was seen sitting at a table in the hallway. He was agreeable to speak with flex o writer operator, however he continues to appear tired, depressed, withdrawn, and isolative. At this time, patient denies any suicidal or homicidal ideation, intent or plan. Denies any auditory or visual hallucinations. Patient denies any side effects from the medications and has been compliant with meds. He declines an increase to his Zoloft and prefers to keep his meds the same today. Mental status exam: General Appearance: Patient appears to be stated age, obese. Behavior: No agitated behavior. Patient is calm and directable. He appears tired, depressed, withdrawn and isolative. Speech: Patient's speech is fluent and non-pressured. Mood/Affect: Mood is a bit depressed still, affect is congruent and constricted. Suicidality/Homicidality: Patient denies having any suicidal or homicidal ideation intent or plan. Perceptions: Patient denies any auditory or visual hallucinations. Though content/process: There is no evidence of any delusional thought content and thought process is linear and goal-directed. Memory and concentration: AOX3, grossly intact for the purposes of this session Judgment and insight: Improving mildly Assessment/Plan: Continue with current diagnosis. Patient continues to meet criteria for inpatient psychiatric admission for symptom stabilization and safety. Patient will be maintained on current psychotropic medication regimen. Monitor for medication compliance and for any psychotropic medication side effects. Will continue to monitor ongoing response to treatment. Encouraged participation in milieu. He would benefit from outpatient follow-up with sleep medicine for JASPREET after discharge.
[2023-12-22] MEDS: SERTRALINE 50 MG TAB PO STA (10:36)
--- NOTE | 2023-12-22 11:29 | P.PN ---
Progress Note - Text Progress Note Date: 12/22/23 Interval History: Patient was seen wandering the hallways and was directable and agreeable to sp danni with technical writer and editor in the office. Patient states that he feels that "he's getting there". Patient states he feels that his mood is improving. States that he is having a hard time initiating sleep, technical writer and editor spoke with patient about increasing trazodone, patient agreeable. Patient has improving eye contact, he is endorsing a little anxiety. Patient has been up and active on the unit today, going to groups. Inspecting Machine Adjuster spoke with patient about going to rehab, patient declined. He states his appetite is good. At this time patient denies any suicidal or homicidal ideations, intent or plan. Patient denies any auditory, visual hallucinations and denies any paranoia or delusions. Patient denies any side effects from the medications and has been compliant with meds. Mental Status Exam: General Appearance: Patient appears to be stated age is alert, directable, and cooperative. Behavior: Patient is calmly seated without any agitated behavior. [place] mildly Speech: Patient's speech is fluent and nonpressured. Mood/Affect: Mood is improving mildly, however, still depressed. affect is congruent and constricted. Improving Suicidality/Homicidality: Patient denies having any suicidal or homicidal id eation intent or plan. Perceptions: Patient denies any visual hallucinations and denies any auditory hallucinations Though content/process: There is no evidence of any delusional thought content and thought process is linear and goal-directed. Less concrete today. Memory and concentration: AOX3, grossly intact for the purposes of this session Judgment and insight: improving Assessment: Schizoaffective disorder Rule out bipolar disorder mixed type Alcohol use disorder by history Plan: -Patient continues to meet criteria for inpatient psychiatric admission for symptom stabilization and safety. Patient has signed adult voluntary form and medication consent and was placed in patient's chart. -Medications: Zyprexa 5 mg p.o. nightly naltrexone 50 mg p.o. daily increase Zoloft to 200 mg p.o. daily for mood/anxiety, increase Trazodone 150 mg p.o. nightly scheduled for insomnia/mood. -When necessary Ativan and Haldol for agitation/aggression -NRT -nicotine patch -SW on board for discharge planning. Encouraged the patient to participate in milieu. Likely discharge tomorrow, if patient continues to improve.
[2023-12-22] MEDS: traZODone HCL 100 MG TAB PO SCH (20:05)
[2023-12-23 07:15] VITALS: RESP 17
[2023-12-23] MEDS: SERTRALINE 100 MG TAB PO SCH (08:12)
[2023-12-23 08:26] VITALS: BP 141/93; PULSE 84
--- NOTE | 2023-12-23 10:12 | P.DS ---
Providers Date of admission: 12/12/23 13:37 Expected date of discharge: 12/23/23 Attending physician: Cheng De La Rosa MD Consults: 12/12/23 13:41 Consult Physician Routine Consulting Provider: Tressa Shields Consult Reason/Comments: history and physical Do you want consulting provider notified?: Yes Primary care physician: Stated None - Discharge Diagnosis(es) (1) Schizoaffective disorder Current Visit: Yes Status: Acute Priority: High (2) Alcohol use disorder Current Visit: No Status: Acute Priority: Medium Hospital Course: Admission HPI: Admission note was completed by Dr Peters "This is a psychiatry assessment on David Acevedo who is a 38-year-old -Italian male and was currently hospitalized with depression and anxiety feelings of helplessness hopelessness and suicidal ideations.Patient is difficult to understand due to his style of responding where he mumbles most of the answers and was trying to also sleep and keep his eyes closed.Patient reports that the he on has had problems with his family where they were spreading bad rumors about some of his behaviors or activity that he had done on the Internet and that his ex-girlfriend and or his spreading rumors.He says that he cannot get into any specifics about it.He also admits that he is at problems with alcohol use but denies any other drug use He admits feeling frustrated and overwhelmed and helpless and hopeless. Patient otherwise is unable to give any specific details" Hospital course: Upon admission to the unit patient was directable and agreeable to commence treatment and signed adult voluntary form. Patient was initially fairly isolative however with time and treatment he eventually got along well with other patients on the unit and followed unit protocol. Patient was compliant with the medications and denied any side effects throughout hospital course. Patient was started on Zyprexa 5 mg nightly for mood stabilization/insomnia, naltrexone 50 mg p.o. daily for alcohol cravings, Zoloft 200 mg daily for mood/anxiety, trazodone 150 mg p.o. nightly for insomnia/mood. Patient was also placed on CIWA protocol with as needed Ativan for alcohol withdrawal symptoms. Patient spoke of his stressors and engaged in therapy both group and individual. Patient was also seen by medical team for history and physical exam. Throughout the course of the hospitalization patient gradually improved with regards to mood, anxiety, sleep and returned back to their baseline level of functioning. On the day of discharge patient denied any suicidal or homicidal ideations intent or plan denied any auditory or visual hallucinations. Patient endorsed wanting to live for his future and his sobriety. The patient denied any access to guns or weapons. Patient denied any paranoia and did not endorse any delusions. Patient does have a significant history of substance abuse and was counseled on abstaining from all substances including alcohol and marijuana. Patient was offered however declined inpatient substance-abuse rehab. Patient elected to do outpatient substance use treatment program through [facility]. Patient was also counseled on the medications and need for regular compliance and was encouraged to follow-up with their outpatient appointment for mental health and also for primary care. Patient opted not to go to the assisted and wants to stay at a low-cost motel, currently denying rehab for substance use treatment. Mental status exam: General Appearance: Patient appears to be well-built, stated age is alert, pleasant, and cooperative. Patient is in no acute distress and has improved hygiene and grooming Behavior: Patient is calmly seated without any agitated behavior. Speech: Patient's speech is fluent and nonpressured. Mood/Affect: Patient reports their mood is "good", affect is congruent Suicidality/Homicidality: Patient denies having any suicidal or homicidal ideation intent or plan. Perceptions: Patient denies any auditory or visual hallucinations. Though content/process: There is no evidence of any delusional thought content and thought process is linear and goal-directed. More future oriented Memory and concentration: AOX3, grossly intact for the purposes of this session. Can spell "WORLD" backwards correctly. Judgment and insight: Chronically poor, however has improved with guarded prognosis Impression: Schizoaffective disorder Rule out bipolar disorder mixed type Alcohol use disorder by history Plan: -Continue with discharge today as patient has improved and stabilized psychiatrically and is not currently an imminent threat to himself and/or others. Patient will remain at chronically elevated risk for harm to self and/or others due to his impulsivity and substance abuse. -Continue medications: Zyprexa 5 mg nightly for mood stabilization/insomnia, naltrexone 50 mg daily for alcohol cravings, Zoloft 200 mg daily for mood/anxiety, trazodone 150 mg daily at bedtime for insomnia/mood. -Patient was counseled on the need for medication compliance and appropriate follow-up at mental health and also primary care for medical issues. Patient verbalized understanding and agreed. -Social work to help coordinate patient's discharge today, will give him assisted referral however patient would like to stay in a local low-cost motel instead. Social work also to arrange for patients follow up appointments with [facility] for psychiatric care along with follow up with primary care provider. -Patient counseled on abstaining from recreational drugs and marijuana and alcohol. Was informed/educated on the adverse effects on their physical and mental health. Patient verbally agreed and understood. Patient was offered substance abuse treatment however declined at this time. -Patient was instructed to return to the hospital or seek immediate medical care if their psychiatric or medical symptoms do worsen or reoccur. Allergies Allergy/AdvReac Type Severity Reaction Status Date / Time No Known Allergies Allergy Verified 12/12/23 14:31 Laboratory Results WBC 3.8 k/uL (3.8-10.6) 12/13/23 07:04 RBC 4.17 m/uL (4.30-5.90) L 12/13/23 07:04 Hgb 13.6 gm/dL (13.0-17.5) 12/13/23 07:04 Hct 41.6 % (39.0-53.0) 12/13/23 07:04 MCV 99.9 fL (80.0-100.0) 12/13/23 07:04 MCH 32.6 pg (25.0-35.0) 12/13/23 07:04 MCHC 32.7 g/dL (31.0-37.0) 12/13/23 07:04 RDW 14.7 % (11.5-15.5) 12/13/23 07:04 Plt Count 101 k/uL (150-450) L 12/13/23 07:04 MPV 9.9 12/13/23 07:04 Neutrophils % 45 % 12/13/23 07:04 Lymphocytes % 44 % 12/13/23 07:04 Monocytes % 6 % 12/13/23 07:04 Eosinophils % 2 % 12/13/23 07:04 Basophils % 1 % 12/13/23 07:04 Neutrophils # 1.7 k/uL (1.3-7.7) 12/13/23 07:04 Lymphocytes # 1.7 k/uL (1.0-4.8) 12/13/23 07:04 Monocytes # 0.2 k/uL (0-1.0) 12/13/23 07:04 Eosinophils # 0.1 k/uL (0-0.7) 12/13/23 07:04 Basophils # 0.0 k/uL (0-0.2) 12/13/23 07:04 Macrocytosis Slight 12/13/23 07:04 Sodium 137 mmol/L (137-145) 12/13/23 07:04 Potassium 4.0 mmol/L (3.5-5.1) 12/13/23 07:04 Chloride 103 mmol/L (98-107) 12/13/23 07:04 Carbon Dioxide 29 mmol/L (22-30) 12/13/23 07:04 Anion Gap 5 mmol/L 12/13/23 07:04 BUN 14 mg/dL (9-20) 12/13/23 07:04 Creatinine 0.93 mg/dL (0.66-1.25) 12/13/23 07:04 Est GFR (CKD-EPI)AfAm >90 (>60 ml/min/1.73 sqM) 12/13/23 07:04 Est GFR (CKD-EPI)NonAf >90 (>60 ml/min/1.73 sqM) 12/13/23 07:04 Glucose 101 mg/dL (74-99) H 12/13/23 07:04 Calcium 8.8 mg/dL (8.4-10.2) 12/13/23 07:04 Total Bilirubin 2.2 mg/dL (0.2-1.3) H 12/13/23 07:04 AST 132 U/L (17-59) H 12/13/23 07:04 ALT 177 U/L (4-49) H 12/13/23 07:04 Alkaline Phosphatase 121 U/L (38-126) 12/13/23 07:04 Total Protein 6.3 g/dL (6.3-8.2) 12/13/23 07:04 Albumin 3.5 g/dL (3.5-5.0) 12/13/23 07:04 TSH 1.710 mIU/L (0.465-4.680) 12/13/23 07:04 Salicylates <1.0 mg/dL 12/12/23 01:49 Urine Opiates Screen Not Detected (NotDetected) 12/12/23 00:41 Ur Oxycodone Screen Not Detected (NotDetected) 12/12/23 00:41 Urine Methadone Screen Not Detected (NotDetected) 12/12/23 00:41 Acetaminophen <10.0 ug/mL 12/12/23 01:49 Ur Barbiturates Screen Not Detected (NotDetected) 12/12/23 00:41 U Tricyclic Antidepress Not Detected (NotDetected) 12/12/23 00:41 Ur Phencyclidine Scrn Not Detected (NotDetected) 12/12/23 00:41 Ur Amphetamines Screen Not Detected (NotDetected) 12/12/23 00:41 U Methamphetamines Scrn Not Detected (NotDetected) 12/12/23 00:41 U Benzodiazepines Scrn Not Detected (NotDetected) 12/12/23 00:41 Urine Cocaine Screen Not Detected (NotDetected) 12/12/23 00:41 U Marijuana (THC) Screen Not Detected (NotDetected) 12/12/23 00:41 Serum Alcohol 162 mg/dL 12/12/23 01:49 Influenza Type A (PCR) Not Detected (Not Detectd) 12/12/23 11:53 Influenza Type B (PCR) Not Detected (Not Detectd) 12/12/23 11:53 RSV (PCR) Not Detected (Not Detectd) 12/12/23 11:53 SARS-CoV-2 (PCR) Not Detected (Not Detectd) 12/12/23 11:53 Vital Signs Temp 96.8 F L 12/23/23 06:39 Pulse 84 12/23/23 08:14 Resp 17 12/23/23 06:39 BP 141/93 12/23/23 08:14 Pulse Ox 98 12/22/23 08:13 FiO2 Patient Condition at Discharge: Stable Plan - Discharge Summary New Discharge Prescriptions: New Folic Acid 1 mg PO DAILY tab Ibuprofen [Motrin] 600 mg PO Q6HR PRN tab PRN Reason: Moderate Pain (Scale 4 To 6) traZODone HCL 150 mg PO HS 30 Days #30 tablet Acetaminophen Tab [Tylenol] 650 mg PO Q4HR PRN tab PRN Reason: Mild Pain (Scale 1 To 3) Thiamine [Vitamin B-1] 100 mg PO DAILY tab Sertraline [Zoloft] 200 mg PO DAILY 30 Days #60 tab Multivitamins, Thera [Multivitamin (formulary)] 1 each PO DAILY 30 Days #30 tab Naltrexone HCl [Revia] 50 mg PO DAILY 30 Days #30 tab Metoprolol Succinate (ER) [Toprol XL] 50 mg PO DAILY 30 Days #30 tab OLANZapine [ZyPREXA] 5 mg PO HS 30 Days #30 tab Discharge Medication List Acetaminophen Tab [Tylenol] 650 mg PO Q4HR PRN tab 12/23/23 [Rx] Folic Acid 1 mg PO DAILY tab 12/23/23 [Rx] Ibuprofen [Motrin] 600 mg PO Q6HR PRN tab 12/23/23 [Rx] Metoprolol Succinate (ER) [Toprol XL] 50 mg PO DAILY 30 Days #30 tab 12/23/23 [Rx] Multivitamins, Thera [Multivitamin (formulary)] 1 each PO DAILY 30 Days #30 tab 12/23/23 [Rx] Naltrexone HCl [Revia] 50 mg PO DAILY 30 Days #30 tab 12/23/23 [Rx] OLANZapine [ZyPREXA] 5 mg PO HS 30 Days #30 tab 12/23/23 [Rx] Sertraline [Zoloft] 200 mg PO DAILY 30 Days #60 tab 12/23/23 [Rx] Thiamine [Vitamin B-1] 100 mg PO DAILY tab 12/23/23 [Rx] traZODone HCL 150 mg PO HS 30 Days #30 tablet 12/23/23 [Rx] Follow up Appointment(s)/Referral(s): [facility] [NON-STAFF] - 1 Week Patient Instructions/Handouts: How to Stop Smoking (ED), Depression (DC), Schizoaffective Disorder (DC), At-Risk Alcohol Use (DC) Activity/Diet/Wound Care/Special Instructions: Avoid the use of street drugs and alcohol. Take all medications as prescribed. When you are in need of refills on your medications, please contact your medical provider and/or outpatient psychiatrist/provider to have this done. Please go to your scheduled outpatient appointment for aftercare treatment. If symptoms return or become worse, call the crisis line at and/or go to the nearest emergency room for evaluation. National Suicide Hotline 128. Discharge/Stand Alone Forms: AA Meetings [facility] Discharge Disposition: HOME SELF-CARE
== END 2023-12-23 13:44 | disposition home or self-care (01) | DRG 750 ==
LOC: EC 23:46 → 3MHU 12-12 13:37
PROVIDERS: ADMIT Psychiatry & Neurology Psychiatry; ATTEND Psychiatry & Neurology Psychiatry
PROC: 0HQEXZZ Repair Left Lower Arm Skin, External Approach (ICD-10-PCS; principal; 2023-12-12)
DX: F25.9 Schizoaffective disorder, unspecified (principal); R45.851 Suicidal ideations; F10.239 Alcohol dependence with withdrawal, unspecified; E66.01 Morbid (severe) obesity due to excess calories; Z68.37 Body mass index [BMI] 37.0-37.9, adult; I10 Essential (primary) hypertension; J45.909 Unspecified asthma, uncomplicated; Z11.52 Encounter for screening for COVID-19; Z28.310 Unvaccinated for COVID-19; S61.512A Laceration without foreign body of left wrist, initial encounter; G47.00 Insomnia, unspecified; G47.33 Obstructive sleep apnea (adult) (pediatric); F17.210 Nicotine dependence, cigarettes, uncomplicated; Z71.6 Tobacco abuse counseling; Z59.6 Low income; Z59.01 Sheltered homelessness; Z91.52 Personal history of nonsuicidal self-harm; Z91.199 Patient's noncompliance with other medical treatment and regimen due to unspecified reason; Z71.51 Drug abuse counseling and surveillance of drug abuser; Z71.41 Alcohol abuse counseling and surveillance of alcoholic
CPT/HCPCS: 12002; 36415; 80053; 80143; 80179; 80306; 80320; 82075; 84443; 85025; 87636; 99285